=== PATIENT | female | born 1970 | race Caucasian/White ===

== ENCOUNTER 2018-12-27 07:16 | Inpatient (IN) | payer BC, SELFPAY ==
--- NOTE | 2018-12-26 16:00 | HP.PCM_ITS ---
- Problem List (1) Pelvic pain Status: Acute (2) Abnormal uterine bleeding (AUB) Status: Acute (3) Adenomyosis Status: Acute (4) History of endometrial ablation Status: Acute History Date of Admission: 12/27/18 History of this : This is a 48 year-old who had an uterine ablation in 2011. Now with AUB and pelvic pain and cramping. Pelvic US shows adenomyosis. Medical History: Medical History (Last Updated 12/26/18 @ 16:02 by Rose Manriquez DO) Hypercholesteremia E78.00 Hypertension I10 Interstitial cystitis N30.10 Surgical History: Surgical History (Last Updated 12/26/18 @ 16:02 by Rose Manriquez DO) History of tonsillectomy Z90.89 Allergies No Known Allergies Allergy (Verified 12/20/18 15:20) Home Medications: Home Medications Cyanocobalamin (Vitamin B-12) [Vitamin B-12] 1,000 mcg PO DAILY 12/20/18 Lisinopril [Zestril] 5 mg PO DAILY 12/20/18 Multivitamin with Minerals [Multiple Vitamin] 1 each PO DAILY 12/20/18 Rosuvastatin Calcium [Crestor] 5 mg PO QHS 12/20/18 Smoking Status: Never smoker History Past Pregnancies: Past Pregnancies Delivery Date Name GA/Weeks Outcome Route Weight Infant Gender Labor Length Anesthesia Delivery Location Provider FOB Review of Systems Constitutional: Denies: Anorexia, Chills, Fever Eyes: Denies: Blurred vision HEENT: Denies: Head Aches Cardiovascular: Denies: Chest Pain Respiratory: Denies: Cough, Shortness of Breath Gastrointestinal: Denies: Constipation, Diarrhea, Nausea, Vomiting Genitourinary: Denies: Dysuria Gynecological: Reports: Excessively long or heavy periods, - - +Pelvic pain Neurological: Denies: Headaches Psychiatric: Denies: Anxiety, Depression Physical Exam General: Alert, No apparent distress HEENT: Atraumatic Cardiovascular: Regular rate Lungs: Clear to auscultation Abdomen: Soft, Non Tender, Non-Distended Extremities:: No edema Neurological: Neuro grossly intact CHARGE MASTER COORDINATOR: Normal external genitalia Assessment/Plan All Active Problems Pelvic pain (Acute) Abnormal uterine bleeding (AUB) (Acute) Adenomyosis (Acute) History of endometrial ablation (Acute) This is a 48 year-old who desires a hysterectomy for pelvic pain, AUB, prior endometrial ablation, and adenomyosis. Risks, benefits, and alternatives were discussed. Consent signed. To proceed with CICI STOCKTON, abdulkadir.
[2018-12-27] VITALS (14 sets, daily range): BP systolic 92–151; BP diastolic 56–93; PULSE 40–65; RESP 14–18; TEMP 35.7–36.9; O2SAT 94–100; BMI 24.3
[2018-12-27 06:00] LABS: Internal QC Validated? YES +Cl - CLEAR BKGD; Pregnancy, Urine Negative Negative
[2018-12-27] MEDS: Scopolamine 1mg/72hr Patch 1 PATCH TRANSDERM. (06:17)
[2018-12-27] MEDS: Gabapentin 600 MG Tablet PO (06:20)
[2018-12-27] MEDS: Phenazopyridine 95 MG Tablet 190 MG PO (06:21)
[2018-12-27] MEDS: Acetaminophen 500 MG Tablet 1000 MG PO ×2 (06:21→17:53)
[2018-12-27] MEDS: Celecoxib 200 MG Capsule 400 MG PO (06:22)
[2018-12-27] MEDS: Enoxaparin 40 MG/0.4 ML Syringe SC (06:23)
[2018-12-27 06:24] LABS: Hematocrit 40.3 % (37-47); Hemoglobin 13.6 g/dl (12.0-15.0); Mean Corp Hgb Conc 33.7 g/gl (32-36); Mean Corpuscular Hgb 30.6 pg (27.0-32.0); Mean Corpuscular Volume 90.6 fL (81-99); Mean Platelet Vol. 10.1 fl (6.2-12.0); Platelet Count 226 K/mm3 (150-450); RBC Distribution Width CV 12.2 % (11.6-14.6); RBC Distribution Width SD 40.1 fl (35.1-43.9); Red Blood Count 4.45 M/mm3 (4.2-5.4); White Blood Count 5.7 K/mm3 (4.4-11.0)
[2018-12-27 06:32] LABS: Scan Indicated on CBC? Y/N NO
[2018-12-27] MEDS: Magnesium Sulfate 4gm/100mL 4 GM/100 ML IV.SOLN. IV (06:50)
[2018-12-27] MEDS: Lactated Ringers 1,000 ML 40 ML IV (06:50)
[2018-12-27] MEDS: dexAMETHasone 10 MG/ML Vial 8 MG IV (06:51)
[2018-12-27 06:56] LABS: Bedside Glucose 83 mg/dL (70-110)
--- NOTE | 2018-12-27 07:21 | OP.PCM_ITS ---
Problem List (1) Pelvic pain Status: Acute (2) Abnormal uterine bleeding (AUB) Status: Acute (3) Adenomyosis Status: Acute (4) History of endometrial ablation Status: Acute Report of Operation Date of Procedure: 12/27/18 Pre-Operative Diagnosis: Pelvic pain, AUB, history of endometrial ablation, adenomyosis Post-Operative Diagnosis: As above and endometriosis Surgery/Procedure Performed:: LAVH, BS, cysto Description of Surgical Findings:: Enlarged, boggy uterus with stenotic cervix. Several endometriosis implants noted on left fallopian tube. No other endometriosis noted. A small right fallopian tube cyst was noted. Normal bilateral ovaries. Normal pelvic cul-de-sac and bilateral ovarian fossas Type of Anesthesia:: General Special Medications: Floseal and Adeel Specimen's removed: Uterus, cervix, bilateral fallopian tubes Drains: Juan Estimated Blood Loss (mL): 150 Fluids Replaced: 1300 Description of Procedure: Fish Liver Sorter: Isabella Orozco MD Patient was prepped and draped in the usual sterile fashion in dorsal lithotomy position using yellow fin stirrups. A weighted speculum was placed in the vagina to expose the cervix and a single tooth tenaculum was placed on the anterior lip of the cervix. A uterine manipulator was placed. The speculum was removed. Gloves were changed and attention was turned to the above portion of the procedure. An infraumbilical incision was made to accommodate a 5 mm port. The 5 mm port was placed using direct visualization with the camera. Once confirmed intraperitoneal, insufflation was initiated. A left lateral 5 mm port was then placed. A right lateral 5 mm port was placed. The abdomen and pelvic were inspected and the above findings noted. The left fallopian tube was followed out to the fimbriated end and the mesosalpinx was cauterized and cut using the Ligasure device. The left uteroovarian ligament and round ligament were cauterized and transected. The same was performed on the right side. Bilaterally, the cardinal ligaments were cauterized and transected down to the level of the uterine arteries. The uterine arteries were skeletonized and cauterized. Attention was then turned below. The uterine manipulator was removed. A weighted speculum was placed to expose the cervix. Local was injected circumferentially around the cervico-vaginal junction. Posterior peritoneum was entered easily. Anterior peritoneum was entered while transportation assistant was watching from above with the laparoscope for assistance. The bilateral uterosacral ligaments were clamped, cut, and suture ligated. Bilateral cardinal ligaments were clamped, cut, and suture ligated. The uterus, cervix, and bilateral fallopian tubes were removed from the vagina and sent to pathology for review. The vagina was closed with interrupted [id number] sutures. Hemostasis was noted. A cystoscopy was performed noting a normal appearing bladder and bilateral ureteral jets. Gloves were then changed and attention turned to above. The abdomen was insufflated again and the camera was placed. General oozing was noted but no active bleeding after irrigation. Floseal and Adeel were placed over pedicles and cuff. Hemostasis was noted. The camera and all ports were removed from the abdomen. The incisions were closed with Monocryl, and Dermabond was placed over top. Instrument counts were correct and the patient was taken to the recovery room in stable condition. Grafts/Implants Used: None - Complications None - Admit VTE Documentation VTE Present on Admission: No VTE Mechan Device Prophylaxis: SCD's VTE Pharm Prophylaxis ordered?: No
--- NOTE | 2018-12-27 07:30 | OV_PTH ---
PATIENT: SUMAN ASHLEY LOC: MS3 U#:[id number] AGE/SX: 48/F ROOM: MS306 RE12/28/[address]: Dr. Maira Suárez, : 1970 BED: 1 DIS: 12/31/2018 SPEC #: [id number] RECD: 12/31/18 07:53 STATUS: FRANCO REQ #: [id number] ROSEMARIE: 12/27/18 07:[address]: Rose Manriquez DEPT: SURGICAL PATHOLOGY RECD BY: Lg Walker ENTERED: 12/31/18 10:13 SP TYPE: OVARY OTHR DR: Dr. Maira Suárez, DO Dr. Kee High, No Primary Care Phys Tissues: Right ovary Procedures: Surgery Specimen Level IV HEADER OPERATION: Diagnostic laparoscopy, evacuation of hematoma, right oophorectomy, placement of vaginal suture PRE-OP DIAGNOSIS: Postoperative hematoma TISSUE SUBMITTED: Right ovary MICROSCOPIC DIAGNOSIS Right ovary: Ovary with no significant pathologic changes. Multiple thick-walled blood vessels and focal dystrophic calcifications present. FA:kerri 01/01/19 MICROSCOPIC DESCRIPTION Slides are reviewed. IDC: CE GROSS DESCRIPTION Received in fixative is one container labeled with the patient's name and designated right ovary. The specimen consists of a blackish-leiva ovary measuring 2.2 x 1.5 x 1.7 cm. The specimen is serially sectioned and submitted in toto in three cassettes. / FA:kerri 12/31/18 TC:4 CPT: 07231
--- NOTE | 2018-12-27 07:30 | HYST_PTH ---
PATIENT: SUMAN ASHLEY LOC: MS3 U#:[id number] AGE/SX: 48/F ROOM: MS306 RE12/28/[address]: Dr. Maira Suárez, : 1970 BED: 1 DIS: 12/31/2018 SPEC #: [id number] RECD: 12/27/18 15:06 STATUS: FRANCO HODA #: [id number] ROSEMARIE: 12/27/18 07:[address]: Rose Manriquez DEPT: SURGICAL PATHOLOGY RECD BY: Lg Walker ENTERED: 12/28/18 08:05 SP TYPE: HYSTERECT OTHR DR: No Primary Care Phys Tissues: Uterus, NOS Procedures: Surgery Specimen Level V HEADER OPERATION: ERAS, lap-assisted vaginal hysterectomy, salpingectomy, cysto PRE-OP DIAGNOSIS: Pelvic pain, abnormal uterine bleeding, adenomyosis TISSUE SUBMITTED: Uterus, bilateral tubes MICROSCOPIC DIAGNOSIS Uterus and bilateral fallopian tubes: Uterus, 157 gm. Leiomyomas, 0.8 cm in greatest dimension. Proliferative endometrium. Myometrial hypertrophy. Mild chronic cervicitis with small nabothian cysts. Bilateral fallopian tubes with paratubal cysts and focal salpingitis isthmica nodosa. FA:kerri 12/31/18 COMMENT Case has been reviewed in consultation with Dr. Feliciano who concurs with the above diagnosis. IDC:CE MICROSCOPIC DESCRIPTION Slides are reviewed. GROSS DESCRIPTION Received in fixative is one container labeled with the patient's name and designated uterus, bilateral fallopian tubes. The specimen consists of a uterus with attached cervix and bilateral fallopian tubes. The uterus with attached cervix measures 9.5 x 8 x 5.5 cm and weighs 157 gm. The serosal surface of the uterus is leiva-pink with focal subserosal nodularity in the posterior right subcornu region. The attached cervix measures 3 cm in length x 3.2 cm in diameter. The exocervical mucosa is leiva and smooth with some focal brownish mucosal hemorrhage. The uterus is opened to reveal a patent endocervical canal. Grossly, no endocervical lesion is identified. The triangular endometrial cavity measures 2.5 x 1.7 cm with an average endometrial thickness of 0.1 cm. The endometrial surface is reddish-pink and smooth. Sections through the myometrium demonstrate a subcornu and subserosal myometrial nodular measuring 0.8 x 0.6 x 0.6 cm. The cut surface of the nodule is leiva and homogenous. The maximal thickness of the myometrial is 2.5 cm. The right fallopian tube measures 5.5 cm in length and varies in diameter from 0.7 to 1 cm. The serosal surface is grayish-pink with a 1 cm paratubal cyst. A fimbriated end is present. Cross-sections through the fallopian tube demonstrate a pinpoint lumen. The left fallopian tube measures 5 cm in length and varies in diameter from 0.5 to 1.2 cm. The serosal surface is grayish-pink and smooth. A fimbriated end is present. Cross-sections through the fallopian tube demonstrate a pinpoint lumen. Apartment Leasing Agent sections are submitted as follows: 1 - anterior cervix, 2 - posterior cervix, 3 & 4 - anterior endomyometrium, 5 & 6 - posterior endomyometrium, 7 - subserosal fibroid nodule, 8 - right fallopian tube, 9 - left fallopian tube. / JUAN:kerri 12/28/18 TC:1 CPT: 07562
[2018-12-27] MEDS: Cefazolin 2 GM in 0.9% Normal Saline 100 ML IV (07:35)
[2018-12-27] MEDS: Ondansetron 4 MG/2 ML Vial IV (10:12)
[2018-12-27] MEDS: Bupivacaine 0.5% PF 10 ML VIAL (10:15)
[2018-12-27] MEDS: Ketorolac 30 MG/ML Syringe IV (11:45)
[2018-12-27] MEDS: Lactated Ringers 1,000 ML 70 ML IV (15:42)
[2018-12-27] MEDS: Ketorolac 15 MG/ML Vial 30 MG IV (17:53)
[2018-12-27 18:20] LABS: Hematocrit 36.2 % (37-47); Hemoglobin 12.9 g/dl (12.0-15.0); Mean Corp Hgb Conc 35.6 g/gl (32-36); Mean Corpuscular Volume 89.8 fL (81-99); Mean Platelet Vol. 9.9 fl (6.2-12.0); Platelet Count 192 K/mm3 (150-450); RBC Distribution Width CV 12.1 % (11.6-14.6); RBC Distribution Width SD 39.6 fl (35.1-43.9); Red Blood Count 4.03 M/mm3 (4.2-5.4); White Blood Count 10.1 K/mm3 (4.4-11.0)
[2018-12-27 18:26] LABS: Scan Indicated on CBC? Y/N NO
[2018-12-27] MEDS: oxyCODONE 5 MG Tablet PO (21:13)
[2018-12-27] MEDS: Docusate Sodium 100 MG Capsule PO (21:14)
[2018-12-28] VITALS (59 sets, daily range): BP systolic 70–154; BP diastolic 34–96; PULSE 48–111; RESP 11–25; TEMP 36.6–37.4; O2SAT 79–100
[2018-12-28] MEDS: 0.9% NaCl Peripheral Flush Adult/Peds IV ×6 (00:03→10:51)
[2018-12-28] MEDS: Ketorolac 15 MG/ML Vial 30 MG IV ×2 (00:03→06:53)
[2018-12-28] MEDS: Acetaminophen 500 MG Tablet 1000 MG PO (00:09)
[2018-12-28] MEDS: Lactated Ringers 1,000 ML 70 ML IV (04:21)
[2018-12-28 04:31] LABS: Bedside Glucose 142 mg/dL (70-110)
--- NOTE | 2018-12-28 04:54 | NURSING ---
Called lab to advise them that wanted her morning labs drawn now.
[2018-12-28] MEDS: Lactated Ringers 1,000 ML 999 ML IV ×2 (04:59→06:15)
[2018-12-28 05:43] LABS: Hematocrit 29.4 % (37-47); Hemoglobin 10.1 g/dl (12.0-15.0); Mean Corp Hgb Conc 34.4 g/gl (32-36); Mean Corpuscular Hgb 31.3 pg (27.0-32.0); Mean Platelet Vol. 10.5 fl (6.2-12.0); Platelet Count 229 K/mm3 (150-450); RBC Distribution Width CV 11.9 % (11.6-14.6); Red Blood Count 3.23 M/mm3 (4.2-5.4); White Blood Count 9.8 K/mm3 (4.4-11.0)
--- NOTE | 2018-12-28 05:44 | EKG12_ITS ---
Test Reason : AM/BRADYCARDIA Blood Pressure : / mmHG Vent. Rate : 052 BPM Atrial Rate : 052 BPM P-R Int : 124 ms QRS Dur : 090 ms QT Int : 434 ms P-R-T Axes : 038 046 079 degrees QTc Int : 403 ms Sinus bradycardia Otherwise normal ECG When compared with ECG of 14-SEP-2006 10:55, No significant change was found Confirmed by ANTONIO RASCON, PERFECTO ([id number]), marketing editor VALENTIN POLANCO ([id number]) on 01/01/2019 8:15:23 AM Referred By: Rose Manriquez Confirmed By:PERFECTO ALVAREZ MD
[2018-12-28 05:51] LABS: Scan Indicated on CBC? Y/N NO
--- NOTE | 2018-12-28 06:48 | PCM.PN.OB ---
Subjective: Patient was doing well overnight. This morning she got up to use the restroom and felt lightheaded and dizzy and had a syncopal episode. She did not fall and was brought back to the bed. She states she does not remember this episode and remembers then feeling very weak in bed afterwards. Currently she denies CP, SOB, palpitations. Has been having generalized abdominal pain, and passes gas right after worsening in her pain. Having nausea as well this morning. Was spontaneously voiding overnight x 2. - Physical Exam General: Alert, No apparent distress HEENT: Atraumatic Lungs: Normal air movement Cardiovascular: Regular rate, Bradycardic Abdomen: Soft, Non-Distended, - - ATTP, no rebounding, no gaurding, no rigidity, incisions c/d/i Extremities: No edema, No Calf Tenderness Skin: No rashes Neurological: Neuro grossly intact Psych/Mental Status: Normal Affect, Appropriate Vital Signs Temp Pulse Resp BP Pulse Ox 98 F 55 L 18 84/58 L 100 12/28/18 04:40 12/28/18 06:25 12/28/18 04:40 12/28/18 06:40 12/28/18 06:40 Oxygen Flow Rate (L/min) 2 Oxygen Delivery Method Nasal Cannula Weight: 141 lb 15.643 oz Body Mass Index (BMI) 24.3 Intake and Output for Last 24 Hours 12/26/18 12/27/18 12/28/18 23:59 23:59 23:59 Intake Total 3613 / 3613 176 / 176 Output Total 1735 / 1735 100 / 100 Balance 1878 / 1878 76 / 76 Laboratory Tests Past 24 Hrs 12/27/18 12/27/18 12/28/18 06:10 18:08 05:04 WBC 10.1 9.8 RBC 4.03 L 3.23 L Hgb 12.9 10.1 L Hct 36.2 L 29.4 L MCV 89.8 91.0 MCH 32.0 31.3 MCHC 35.6 34.4 RDW 12.1 11.9 RDW Differential 39.6 38.0 Plt Count 192 229 MPV 9.9 10.5 Blood Type O POSITIVE Antibody Screen NEGATIVE POC Glucose 12/28/18 12/27/18 04:18 06:14 POC Glucose 142 H 83 Medical Necessity - Tobacco Use Smoking Status: Never smoker Tobacco Use: Non-smoker Assessment/Plan All Active Problems (Last Updated 12/26/18 @ 16:02 by Rose Manriquez DO) Pelvic pain (Acute) Abnormal uterine bleeding (AUB) (Acute) Adenomyosis (Acute) History of endometrial ablation (Acute) POD#1 s/p KATH, BS, cysto - This morning she had a syncopal episode after getting up to use the restroom. This was followed by hypotension and bradycardia. Has received 2L total of fluid bolus, and remains hypotensive at this time. CBC obtained and Hgb 10.1 which is appropriate for post-op day 1. EKG shows sinus bradycardia. Electrolytes pending. Likely vasovagal syncope given timing but patient persistently hypotensive and bradycardic, so will place consult to hospitalist for assistance with her care. Abdominal exam is benign this morning. UOP overnight was about 33 cc/hr. D/w Dr. Orozco for a second opinion as well - Dispo: Continue post-operative care. Await medicine consult. Anticipate d/c later tonight pending consult and if patient is improved and meeting post-op milestones
[2018-12-28] MEDS: Ondansetron 4 MG/2 ML Vial IV (07:01)
[2018-12-28 07:16] LABS: ALB/GLOB Ratio 1.2 RATIO (0.9-2.4); AST(SGOT) 12 U/L (15-37); Alanine Aminotransfer ALT/SGPT 11 U/L (13-56); Alkaline Phosphatase 43 U/L (45-117); Anion Gap 2 (5-15); BUN 13 mg/dL (7-18); BUN/Creat Ratio 14.9 RATIO (10-20); Calcium,Total 7.8 mg/dL (8.5-10.1); Chloride 103 mmol/L (98-107); Creatinine, Serum 0.87 mg/dL (0.55-1.02); EST Glomerular Filtration Rate 74 mL/min (>60); Est Glom Filt Rate - Afr Amer 89 mL/min (>60); Estimated Creatinine Clearance 68.29 ml/min; Globulin 2.5 g/dL (2.2-4.2); Glucose 122 mg/dL (74-106); Magnesium 2.2 mg/dL (1.6-2.6); Potassium 3.8 mmol/L (3.5-5.1); Protein, Total 5.5 g/dL (6.4-8.2); Sodium Level 132 mmol/L (136-145)
--- NOTE | 2018-12-28 07:36 | HP.PCM_ITS ---
Problem List (1) Hypotension Status: Acute (2) Bradycardia Status: Acute (3) Acute blood loss as cause of postoperative anemia Status: Acute (4) HLD (hyperlipidemia) Status: Chronic (5) Hyponatremia Status: Acute (6) HTN (hypertension) Status: Chronic (7) Interstitial cystitis Status: Chronic History of Present Illness Date of Admission: 12/28/18 Chief Complaint: bradycardia and hypotension with syncope The patient is a 48 year old F with a PMH of HLD, DUB\ and adenosis who had surgery on 12/27/[address] Manriquez. Surgery was a laparoscopic assisted vaginal hysterectomy with bilateral salpingo-oophorectomy and a cystoscopy. Blood pressures throughout the night have been on the low side. At approximately 5 AM this morning while in the bathroom she had a syncopal episode but did not hit the ground and was assisted to the bed. Stat CBC showed a white blood cell count of 9.8 with hemoglobin of 10.1 and platelets of 229,000. A CMP showed a low sodium at 132, BUN of 13 and a creatinine of 0.87. Calcium corrected for hypoalbuminemia was within normal limits. LFTs were unremarkable. Magnesium was within normal limits. At approximately 745 and AUTO BENCH MECHANIC was called because the patient was unresponsive in bed. Please see the AUTO BENCH MECHANIC note. She was transferred to the ICU with a systolic BP of 70and a HR in the 60's. She was diaphoretic and extremely pale. She was started on a dopamine infusion but the pressure remained low and she was transitioned to Levophed. The current systolic pressure is 102. There are currently 2 units of PRBC's running simultaneously. She is nauseated and had an emesis. A stat CT of the abd and pelvis will be obtained when the BP has been > 100 for 20-30 minutes. Fibrinogen is low at 184 and she is to receive at least 3 units of blood and probably more. I suspect that she is bleeding internally and will need to go to surgery when we have her stabilized. Past Medical History Past Medical History (Chronic Problems): Chronic Problems (Last Reviewed 12/28/18 @ 09:18 by Maira Suárez DO) HLD (hyperlipidemia) (Chronic) HTN (hypertension) (Chronic) Interstitial cystitis (Chronic) Medical History: Medical History (Last Reviewed 12/28/18 @ 09:18 by Maira Suárez DO) Hypercholesteremia E78.00 Hypertension I10 Interstitial cystitis N30.10 Allergies No Known Allergies Allergy (Verified 12/20/18 15:20) Home Medications: Ambulatory Orders Medication Instructions Recorded Cyanocobalamin (Vitamin B-12) 1,000 mcg PO DAILY 12/20/18 [Vitamin B-12] Lisinopril [Zestril] 5 mg PO DAILY 12/20/18 Multivitamin with Minerals 1 each PO DAILY 12/20/18 [Multiple Vitamin] Rosuvastatin Calcium [Crestor] 5 mg PO QHS 12/20/18 Surgical History: Surgical History (Last Reviewed 12/28/18 @ 09:18 by Maira Suárez DO) History of tonsillectomy Z90.89 Surgical History: - - Laparoscopic-assisted vaginal hysterectomy with bilateral salpingo-oophorectomy on 12/27/[address] Manriquez. Cystoscopy was also done. 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 Denies: Fever, Weight Change Eyes: Denies: Blurred vision HEENT: Denies: Head Aches, Sinus Congestion, Sinus Drainage Cardiovascular: Reports: Light Headedness. Denies: Chest Pain, Palpitations Respiratory: Denies: Cough, Shortness of breath at rest, Sputum production Gastrointestinal: Denies: Abdominal Pain, Nausea, Vomiting Genitourinary: Denies: Dysuria Gynecological: Reports: - - Severe pelvic pain radiating to the low back Musculoskeletal: Denies: Joint Pain, Joint Tenderness Skin: Denies: Jaundice, Rash, Wounds Neurological: Denies: Numbness, Tingling, Focal weakness Psychiatric: Denies: Anxiety, Depression, Homicidal Ideations, Suicidal Ideations Hematologic/ Lymphatic: Denies: Easy Bruising, Easy Bleeding, Hx of blood clot VTE Information - Inpt Only VTE Present on Admission: No VTE Mechan Device Prophylaxis: SCD's, Knee High GABI Hose VTE Pharm Prophylaxis ordered?: No Reason prophylaxis not ordered:: Treatment Not Indicated - pt is having severe post op anemia and I suspect she is bleeding internally. Patient Problems: Active and Suspected Problems (Last Reviewed 12/28/18 @ 09:18 by Maira Suárez DO) Hypotension (Acute) Bradycardia (Acute) Acute blood loss as cause of postoperative anemia (Acute) Hyponatremia (Acute) - Physical Exam General: Well developed, Well nourished, - - very weak and diaphoretic HEENT: Atraumatic, EOMI, Normocephalic, - - white palpebral conjunctiva, pupils were initially dilated but responsive and then when she became alert the pupils were normal size Oral: No Gingival or Mucosal Lesions/ Ulcerations, Dry Mucosa Neck: Supple, No JVD Lungs: Clear to auscultation, No rhonchi, No wheeze, No rales Cardiovascular: Regular rate - unusal because she is very hypotensive and I would suspect her to be tachycardic, Regular Rhythm, Normal S1, Normal S2, No murmurs, No rub noted, No Gallop Abdomen: Soft, Non-Distended, Tender - very tender in the pelvis, R and L and yells out with even light pressure Extremities: No clubbing, No cyanosis, No edema, - - Nailbeds are white with poor capillary refill Skin: No rashes, No breakdown Musculoskeletal: No Muscle Wasting Neurological: Cranial nerves II-XII grossly intact, Neuro grossly intact Vital Signs Temp Pulse Resp BP Pulse Ox 98 F 59 L 18 86/56 L 100 12/28/18 04:40 12/28/18 06:59 12/28/18 04:40 12/28/18 06:59 12/28/18 06:59 Oxygen Flow Rate (L/min) 1 Oxygen Delivery Method Nasal Cannula Weight: 141 lb 15.643 oz Body Mass Index (BMI) 24.3 Intake and Output for Last 24 Hours 12/26/18 12/27/18 12/28/18 23:59 23:59 23:59 Intake Total 3613 / 3613 176 / 176 Output Total 1735 / 1735 100 / 100 Balance 1878 / 1878 76 / 76 Laboratory Tests Past 24 Hrs 12/27/18 12/28/18 12/28/18 18:08 05:04 05:04 WBC 10.1 9.8 RBC 4.03 L 3.23 L Hgb 12.9 10.1 L Hct 36.2 L 29.4 L MCV 89.8 91.0 MCH 32.0 31.3 MCHC 35.6 34.4 RDW 12.1 11.9 RDW Differential 39.6 38.0 Plt Count 192 229 MPV 9.9 10.5 Sodium 132 L Potassium 3.8 Chloride 103 Carbon Dioxide 27.0 Anion Gap 2 L BUN 13 Creatinine 0.87 Estim Creat Clear Calc 68.29 Est GFR (MDRD) Af Amer 89 Est GFR (MDRD) Non-Af 74 BUN/Creatinine Ratio 14.9 Glucose 122 H Calcium 7.8 L Magnesium 2.2 Total Bilirubin 0.50 AST 12 L ALT 11 L Alkaline Phosphatase 43 L Total Protein 5.5 L Albumin 3.0 L Globulin 2.5 Albumin/Globulin Ratio 1.2 POC Glucose 12/28/18 04:18 POC Glucose 142 H Assessment/Plan All Active Problems (Last Reviewed 12/28/18 @ 09:18 by Maira Suárez, DO) Pelvic pain (Acute) Abnormal uterine bleeding (AUB) (Acute) Adenomyosis (Acute) History of endometrial ablation (Acute) Hypotension (Acute) Bradycardia (Acute) Acute blood loss as cause of postoperative anemia (Acute) Hyponatremia (Acute) Impressions 1. hemorrhagic shock 2. Bradycardia-unusual in a patient with hypotension secondary to hemorrhage 3. Acute blood loss anemia 4. Postop day #1 status post laparoscopic assisted vaginal hysterectomy 5. Hyponatremia 6. History of hypertension 7. History of hyperlipidemia Transfer to the ICU Transfuse 1 units of emergency blood now and type and cross match stat for additional blood......will transfuse a total of 3 and then re-evaluate Q6H H&H consult Dr. High to participate in care When the BP is stable will get a stat CT of the abd and the pelvise with IV contrast only Start pressors to maintain the MAP at at least 65 Fibrinogen, PT and PTT stat D/W Dr. Declan Banda lab in the AM Code Visit Inpatient E&M: 19057 Subs Hosp L3
[2018-12-28] MEDS: DOPamine IV 800 MG/250 ML IV.SOLN. 6.038 MG CONT INF (08:00)
--- NOTE | 2018-12-28 08:05 | NURSING ---
Dr High at bedside to place central line
--- NOTE | 2018-12-28 08:09 | CT_ITS ---
STUDY: CT ABDOMEN AND PELVIS WITH CONTRAST REASON FOR EXAM: Female, 48 years old. Pelvic bleed after hysterectomy. RADIATION DOSAGE (If Supplied By Facility): CTDIvol = ( 37 ) mGy, DLP = ( 951.50 ) mGycm TECHNIQUE: Transaxial images were obtained from the dome of the diaphragm to the symphysis pubis without oral contrast. 100 ml of IV Isovue 300 was administered. Sagittal and coronal images were reconstructed. Individualized dose optimization techniques were used for this CT. COMPARISON: Prior comparable comparison studies are not available for review at this time. FINDINGS: There is bilateral basilar dependent atelectasis and/or airspace consolidation. The visualized portions of the heart are within normal limits. Normal liver. Normal gallbladder and extrahepatic biliary system. Normal spleen. Normal pancreas. Normal bilateral adrenal glands. Normal right kidney. Normal left kidney. There is a small hiatal hernia. There is a large amount of abdominal fluid. The fluid has increased attenuation within the pelvis is consistent with known hemorrhage. Fluid within the proximal abdomen has more serous appearance but probably is also related to hemorrhage. There is no obvious dilated bowel or pneumoperitoneum. The small bowel has a grossly normal appearance. Stool is visible throughout the colon. The cecum appears to be mobile and is located in the right upper quadrant. There is non-visualization of the appendix. Abdominal aorta is mildly tortuous. Normal inferior vena cava. Normal retroperitoneum. The urinary bladder is not distended secondary to Juan catheter. Gas is visible urinary bladder probably related to the Juan catheter. There is absence of the uterus consistent with a prior hysterectomy. There is a small umbilical hernia containing fat. Normal osseous structures. CT/Abdomen/Pelvis W IV Cont ONLY IMPRESSION: 1. Large amount of pelvic hemorrhage and abdominal fluid. This is presumably related to the recent section. 2. Bilateral basilar airspace consolidation and atelectasis. N.B. : Dr Jose Armando MD, confirmed on 12/28/2018 14:13:22 (ET) that the referring physician received the results and does not require a verbal communication. Electronically Signed: Shilpi Puckett MD at 11:41 EDT , Service support ,
--- NOTE | 2018-12-28 08:13 | PN_ITS ---
Progress Note CHIEF TECHNICAL OFFICER note The pt is a 48 YO female who is POD #1. She had a LAVD, BS and cysto yesterday by Dr. Manriquez for adenosis with DUB. This morning at approximately 5 AM she was up to the BR and had a syncopal episode.....she did not fall and was placed back in bed. She had a CBC and the HGB was 10.1. PLT's are WNL. Sodium is mildly decreased. EKG showed SB with no significant ST or T wave changes. At about 7:45 an CHIEF TECHNICAL OFFICER was called because she became unresponsive while lying in bed. She was diaphoretic with dilate reactive pupils and extremely pale. Capillary refill was poor and the palpebral conjunctiva was white. She was diaphoretic. she is c/o of severe pelvic and back pain. there is no ecchymosis in the flanks. The HOB was placed flat and she became responsive. The systolic BP was 70 and the HR was in the 60's. She was transferred emergently to the ICU and started on Dopamine to support the BP. A central line has been placed by Dr. High. A unit of emergency blood was ordered and s stat crossmatch. Dr. High has been consulted to participate in care. Dr. Manriquez was made aware of the second syncopal episode and the transfer to the ICU. Dr. Manriquez notified the patient's of the change in status and transfer to the ICU. Will obtain a stat CT of the abd and the pelvis when the BP is stable.
[2018-12-28 08:14] LABS: Hematocrit 21.4 % (37-47); Hemoglobin 7.5 g/dl (12.0-15.0)
[2018-12-28 08:16] LABS: Bedside Glucose 151 mg/dL (70-110)
--- NOTE | 2018-12-28 08:16 | NURSING ---
This nurse went to see patient to perform vitals and assessment at 0740. Pt was verbal but talking very low. When asked if she was still nauseated, pt stated she was and yes to being dizzy. This nurse was attempting to take her BP when she started staring into space and was nonverbal, not responding to this nurse. This nurse pressed Staff Assist and told first nurse that came to go get Dr. Suárez whom was on the floor and had just been consulted on the patients case. While this nurse in the room performing vitals, and another nurse called Dr. Manriquez to inform her what was going on. Dr. Manriquez informed this nurse that she was going to call the and update him. Pt transferred to ICU room 1.
[2018-12-28 08:19] LABS: White Blood Count 14.9 K/mm3 (4.4-11.0)
--- NOTE | 2018-12-28 08:19 | RAD_ITS ---
STUDY: X-RAY CHEST REASON FOR EXAM: Female, 48 years old. Chest pain, line placement TECHNIQUE: Single AP portable view of the chest. COMPARISON: None. FINDINGS: EKG leads overlie the chest. A right IJ central venous catheter is in place, tip is in the right atrium. No pneumothorax or mediastinal shift. The lungs are clear and expanded. There is no demonstrated pleural abnormality. Normal size heart. Normal mediastinum and caroline. Normal visualized pulmonary arteries. Normal visualized aortic arch and descending thoracic aorta. Normal visualized thoracic spine. Normal visualized ribs, clavicles, and shoulders. There is no demonstrated abnormality of the visualized soft tissue structures of the upper abdomen. RAD/CXR for Line Placement IMPRESSION: No acute pulmonary process. Right central venous catheter has been placed, tip is in the right atrium. Electronically Signed: Issa Coulter MD at 12:45 EDT , Service support ,
[2018-12-28 08:20] LABS: Mean Corpuscular Hgb 31.9 pg (27.0-32.0); Mean Corpuscular Volume 91.1 fL (81-99); Mean Platelet Vol. 10.6 fl (6.2-12.0); Platelet Count 190 K/mm3 (150-450); RBC Distribution Width CV 11.8 % (11.6-14.6); RBC Distribution Width SD 37.3 fl (35.1-43.9); Red Blood Count 2.35 M/mm3 (4.2-5.4); Scan Indicated on CBC? Y/N NO
[2018-12-28 08:21] LABS: International Normalized Ratio 1.2; Prothrombin Time (Protime)PT. 15.3 SECONDS (11.7-14.9)
[2018-12-28 08:22] LABS: Partial Thromboplast Time 25.7 Seconds (24.1-36.2)
[2018-12-28 08:23] LABS: Fibrinogen 184 mg/dl (203-444)
--- NOTE | 2018-12-28 08:36 | CON.PCM_ITS ---
Reason for Consult Date of Consultation: 12/28/18 Reason for Consultation: Hemorrhagic shock History of Present Illness: The patient is a 48-year-old female, with a history as outlined below, who initially presented for admission on December 27 by her PEST CONTROL APPLICATOR due to a history of abnormal uterine bleeding along with pelvic pain in the setting of ultrasound evidence of adenomyosis. She was subsequently taken to the OR and underwent LAVH / BS with an estimated blood loss of approximately 150 mL's. The patient's immediate postoperative period was uncomplicated. However, on the morning of December 28, the patient was noted to be complaining of dizziness and lightheadedness. She also sustained a syncopal event while on the medical surgical floor. A rapid response team was called and the patient was noted to be hypotensive. She was subsequently transferred to the medical intensive care unit. Upon arrival, a repeat of her lab work revealed acute blood loss anemia. Earlier this morning, the patient was noted to have a hemoglobin of 10 g/dL. On recheck in the ICU, her hemoglobin was noted to be 7.5 g/dL. The patient was given several liters of supplemental IV fluids. Vasopressor support was initiated in an attempt to maintain hemodynamic stability. Central Venous Catheter (CVC, Central Line) Placement Indication: Intravenous access/administration of vasopressor agents. A time-out was completed verifying correct patient, procedure, site, positioning, and special equipment if applicable. The patient was placed in a dependent position appropriate for central line placement based on the vein to be cannulated. The patient?s right IJ was prepped and draped in sterile fashion. 1% Lidocaine was used to anesthetize the surrounding skin area. A triple lumen catheter was introduced into the the internal jugular vein using the Seldinger technique and under ultrasound guidance. The catheter was threaded smoothly over the guide wire and appropriate blood return was obtained. Each lumen of the catheter was evacuated of air and flushed with sterile saline. The catheter was then sutured in place to the skin and a sterile dressing applied. CXR to confirm appropriate positioning is pending. ULTRASOUND GUIDANCE STATEMENT (Vascular Access): I performed ultrasound image acquisition and interpretation for needle placement during this procedure. The vessel was identified and was found to be free of thrombosis by compression technique. A safe point of entry was marked at the skin and an angle for access was determined. The needle was guided by obtaining free flowing fluid and by real time visualization. Past Medical History Past Medical History (Chronic Problems): Chronic Problems (Last Reviewed 12/28/18 @ 09:18 by Maira Suárez DO) HLD (hyperlipidemia) (Chronic) HTN (hypertension) (Chronic) Interstitial cystitis (Chronic) Medical History: Medical History (Last Reviewed 12/28/18 @ 09:18 by Maira Suárez DO) Hypercholesteremia E78.00 Hypertension I10 Interstitial cystitis N30.10 Allergies No Known Allergies Allergy (Verified 12/20/18 15:20) Home Medications: Ambulatory Orders Medication Instructions Recorded Cyanocobalamin (Vitamin B-12) 1,000 mcg PO DAILY 12/20/18 [Vitamin B-12] Lisinopril [Zestril] 5 mg PO DAILY 12/20/18 Multivitamin with Minerals 1 each PO DAILY 12/20/18 [Multiple Vitamin] Rosuvastatin Calcium [Crestor] 5 mg PO QHS 12/20/18 Surgical History: Surgical History (Last Reviewed 12/28/18 @ 09:18 by Maira Suárez DO) History of tonsillectomy Z90.89 Smoking Status: Never smoker Tobacco Use: Non-smoker - *Family History Maternal History Items: No pertinent history Paternal History Items: No pertinent history Review of Systems Constitutional: Reports: Chills, Fatigue Eyes: Denies: Blurred vision, Double vision HEENT: Denies: Head Aches, Sinus Congestion, Sinus Drainage Cardiovascular: Denies: Chest Pain, Palpitations Respiratory: Denies: Cough, Shortness of breath at rest, Sputum production Gastrointestinal: Reports: Nausea, Vomiting Genitourinary: Denies: Dysuria Musculoskeletal: Denies: Joint Pain, Joint Tenderness Skin: Denies: Rash, Wounds Neurological: Denies: Numbness, Tingling, Focal weakness Psychiatric: Denies: Anxiety, Depression, Homicidal Ideations, Suicidal Ideations Hematologic/ Lymphatic: Reports: Anemia Patient Problems: Active and Suspected Problems (Last Reviewed 12/28/18 @ 09:18 by Maira Suárez DO) Hypotension (Acute) Bradycardia (Acute) Acute blood loss as cause of postoperative anemia (Acute) Hyponatremia (Acute) Objective: The patient's most recent lab work, culture data and imaging studies have all been personally reviewed. - Physical Exam General: Alert, Cooperative, - - Quite pale and ill in appearance HEENT: Atraumatic, Normocephalic Oral: Dry Mucosa Neck: Supple, No Nodes, Trachea Midline, - - Right IJ central venous catheter in place Lungs: Normal air movement, No rhonchi, No wheeze, No rales Cardiovascular: Regular rate, Normal S1, Normal S2, No murmurs Abdomen: Soft, Non-Distended, Tender - Pelvis Extremities: No clubbing, No cyanosis, No edema, Cool Skin: No breakdown Musculoskeletal: No Muscle Wasting Lymphatic: No Cervical, Supraclavicular, or Inguinal Adenopathy Neurological: Neuro grossly intact Psych/Mental Status: Normal Affect, Appropriate Vital Signs Temp Pulse Resp BP Pulse Ox 98 F 57 L 14 70/34 L 100 12/28/18 04:40 12/28/18 07:50 12/28/18 07:50 12/28/18 08:00 12/28/18 07:40 Oxygen Flow Rate (L/min) 2 Oxygen Delivery Method Nasal Cannula Weight: 141 lb 15.643 oz Body Mass Index (BMI) 24.3 Intake and Output for Last 24 Hours 12/26/18 12/27/18 12/28/18 23:59 23:59 23:59 Intake Total 3613 / 3613 176 / 176 Output Total 1735 / 1735 100 / 100 Balance 1878 / 1878 76 / 76 Laboratory Tests Past 24 Hrs 12/27/18 12/27/18 12/27/18 06:10 06:10 18:08 WBC 10.1 RBC 4.03 L Hgb 12.9 Hct 36.2 L MCV 89.8 MCH 32.0 MCHC 35.6 RDW 12.1 RDW Differential 39.6 Plt Count 192 MPV 9.9 PT INR APTT Fibrinogen Sodium Potassium Chloride Carbon Dioxide Anion Gap BUN Creatinine Estim Creat Clear Calc Est GFR (MDRD) Af Amer Est GFR (MDRD) Non-Af BUN/Creatinine Ratio Glucose Calcium Magnesium Total Bilirubin AST ALT Alkaline Phosphatase Total Protein Albumin Globulin Albumin/Globulin Ratio Crossmatch See Detail See Detail 12/28/18 12/28/18 12/28/18 05:04 05:04 08:00 WBC 9.8 14.9 H RBC 3.23 L 2.35 L Hgb 10.1 L 7.5 L Hct 29.4 L 21.4 L MCV 91.0 91.1 MCH 31.3 31.9 MCHC 34.4 35.0 RDW 11.9 11.8 RDW Differential 38.0 37.3 Plt Count 229 190 MPV 10.5 10.6 PT INR APTT Fibrinogen Sodium 132 L Potassium 3.8 Chloride 103 Carbon Dioxide 27.0 Anion Gap 2 L BUN 13 Creatinine 0.87 Estim Creat Clear Calc 68.29 Est GFR (MDRD) Af Amer 89 Est GFR (MDRD) Non-Af 74 BUN/Creatinine Ratio 14.9 Glucose 122 H Calcium 7.8 L Magnesium 2.2 Total Bilirubin 0.50 AST 12 L ALT 11 L Alkaline Phosphatase 43 L Total Protein 5.5 L Albumin 3.0 L Globulin 2.5 Albumin/Globulin Ratio 1.2 Crossmatch 12/28/18 08:00 WBC RBC Hgb Hct MCV MCH MCHC RDW RDW Differential Plt Count MPV PT 15.3 H INR 1.2 APTT 25.7 Fibrinogen 184 L Sodium Potassium Chloride Carbon Dioxide Anion Gap BUN Creatinine Estim Creat Clear Calc Est GFR (MDRD) Af Amer Est GFR (MDRD) Non-Af BUN/Creatinine Ratio Glucose Calcium Magnesium Total Bilirubin AST ALT Alkaline Phosphatase Total Protein Albumin Globulin Albumin/Globulin Ratio Crossmatch POC Glucose 12/28/18 12/28/18 07:42 04:18 POC Glucose 151 H 142 H Assessment/Plan Active and Suspected Problems (Last Reviewed 12/28/18 @ 09:18 by Maira Suárez DO) Hypotension (Acute) Bradycardia (Acute) Acute blood loss as cause of postoperative anemia (Acute) Hyponatremia (Acute) RECOMMENDATIONS: 1. Transfuse packed red blood cells and FFP as ordered. 2. Obtain plain film chest x-ray to confirm central venous catheter placement. 3. Transition from dopamine to Levophed and wean to maintain a mean arterial pressure at or above 65 mmHg. 4. Obtain coags. 5. Once bolus fluids have completed, continue lactated Ringer's at 150 mL's per hour. 6. Obtain CT abdomen/pelvis once medically stabilized. IMPRESSIONS: 1. Hemorrhagic shock The patient developed acute blood loss anemia this morning and subsequent hypotension following surgical intervention yesterday during which time she underwent LAVH, BS, and cysto. The patient was transferred emergently to the ICU. The patient will receive bolus IV fluids while repeat labs are being obtained. The patient was initially started on dopamine to maintain hemodynamic stability. A central venous catheter was placed. The patient will receive transfusion of blood products to include FFP and packed red blood cells. I did recommend transitioning from dopamine to Levophed with a goal to maintain a mean arterial pressure at or above 65 mmHg. Antiemetics will be initiated for the patient's nausea/vomiting. Once the patient has stabilized, she will be taken for a stat CT of her abdomen/pelvis. I do anticipate that she will need to be taken back to the OR at some point today for intervention. TIME: 48 minutes of critical care time, inclusive of procedures, was spent addressing the patient's hemorrhagic shock, review of all data and collaboration with the care team. ([id number]) Code Visit 9xxxx: [id number] Critical care first hour
--- NOTE | 2018-12-28 09:05 | NURSING ---
per dr rushing, run both units of blood together wide open
[2018-12-28] MEDS: 0.9% Normal Saline 1,000 ML 999 ML IV (09:21)
[2018-12-28] MEDS: Lactated Ringers 1,000 ML 150 ML IV ×2 (09:24→15:30)
--- NOTE | 2018-12-28 10:00 | NURSING ---
Emergency blood that was brought with patient did not have matching expiration dates on white form and label on blood bag. Spoke w/lab, that bag was sent back to the lab and the first 2u of crossmatched blood were brought up and to be transfused. Per Dr Suárez- give both unit at the same time and do not need to do q15m vitals d/t emergency and pt hemorrhaging. 3rd unit given as soon as 1st unit done. Emergency bag never given. Pt also received 1u FFP.
[2018-12-28] MEDS: proMETHazine 25 MG/ML Syringe 6.25 MG IV (10:51)
[2018-12-28 12:49] LABS: Hematocrit 32.1 % (37-47); Hemoglobin 11.2 g/dl (12.0-15.0); Mean Corp Hgb Conc 34.9 g/gl (32-36); Mean Corpuscular Hgb 31.3 pg (27.0-32.0); Mean Corpuscular Volume 89.7 fL (81-99); Mean Platelet Vol. 10.2 fl (6.2-12.0); Platelet Count 119 K/mm3 (150-450); RBC Distribution Width CV 12.9 % (11.6-14.6); RBC Distribution Width SD 41.6 fl (35.1-43.9); Red Blood Count 3.58 M/mm3 (4.2-5.4); White Blood Count 10.8 K/mm3 (4.4-11.0)
[2018-12-28 12:50] LABS: Scan Indicated on CBC? Y/N NO
--- NOTE | 2018-12-28 13:29 | PN_ITS ---
Progress Note At bedside to talk to patient and family. Reviewed lab results and CT scan results. Discussed that she had a post-op intra-abdominal bleed. She is now stable off of pressors and s/p 3 units PRBC's. Discussed a laparoscopy to evacuate the hematoma, as well as to assess for an active bleed. Discussed that it is possible that after evacuation of the blood clot, the site of bleeding is disrupted and begins to bleed again. Also discussed that it is possible that the site of active bleeding is not able to be identified. Reviewed possible laparot anabella, as well as possible suture or cautery of any area of bleeding. Discussed risks of surgery including but not limited to bleeding, infection, injury to surrounding organs or blood vessels. Reviewed alternative to surgery which would be expectant management with serial CBC's and exams - discussed that the hematoma could continue to cause discomfort, possible infection, and possible adhesions. Patient desires to proceed with surgery at this time. Reviewed patient with Dr. Orozco as well for a second opinion. Will schedule surgery for today to proceed with a laparoscopy and evacuation of pelvic and abdominal hematomas.
--- NOTE | 2018-12-28 13:45 | CASEMGMT ---
RN CM Note: RN CM assessment deferred. Pt receiving frequent ICU care, transfusions and will be returning to surgery today. Travis BOLANOSN RN ACM
--- NOTE | 2018-12-28 15:40 | NURSING ---
Pt taken to surgery by Alyx, OR charge nurse. Family present when pt left unit.
[2018-12-28] MEDS: Bupivacaine Mpf 0.5% 30 ML VIAL (18:03)
--- NOTE | 2018-12-28 18:09 | OP.PCM_ITS ---
Problem List (1) Hypotension Status: Acute (2) Bradycardia Status: Acute (3) Acute blood loss as cause of postoperative anemia Status: Acute Report of Operation Date of Procedure: 12/28/18 Pre-Operative Diagnosis: Post-operative acute blood loss anemia, intrabdominal hematoma Post-Operative Diagnosis: As above Surgery/Procedure Performed:: Laparoscopy, evacuation of hematoma, right oophorectomy, placement of vaginal cuff suture, cauterization of posterior vaginal cuff Description of Surgical Findings:: 2L of dark red blood clot present. 150 cc of bright red blood. The posterior vaginal cuff had a general ooze. The right IP also was oozing just at the ovary. No significant active bleeding noted after clot was evacuated. Intact vaginal cuff. Type of Anesthesia:: General Special Medications: Floseal and Adeel Specimen's removed: Right ovary Drains: Juan Estimated Blood Loss (mL): 150 cc Fluids Replaced: 1100 cc Description of Procedure: Assistance: Isabella Orozco MD Patient prepped and draped in usual sterile fashion in dorsal lithotomy position using yellow fin stirrups. A sponge stick was placed in the vagina for manipulation. Gloves were changed and attention turned to the abdominal portion of the case. A 5 mm supraumbilical incision was made to accommodate a 5 mm port and laparoscope. The port was placed under direct visualization and once confirmed intraperitoneal the abdomen was insufflated. A right lateral 5 mm port was placed. A left lateral 5 mm port was placed. The clot was evacuated and the abdomen and pelvis were irrigated. Thorough inspection was performed of the abdomen and pelvis. There was no obvious, active hemorrhage The posterior vaginal cuff appeared oozy. With the assistant quality manager watching from above, a single [id number] suture was placed along the vaginal cuff. Gloves were then changed for the continued abdominal portion of the case. The pelvis continued to be inspected. A LUQ port was placed to assist with retraction of the bowel. The right IP was minimally bleeding with oozing noted, and the decision was made to perform a right oophorectomy. The right ureter was identified. The right IP ligament was cauterized and transected to remove the right ovary. The pelvis continued to be irrigated and suctioned and inspected to try to identified an obvious active source of hemorrhage The posterior vaginal cuff was still oozing so the monopolar cautery was used over a single area to cauterize the bleeding. The pelvis was again irrigated, suctioned and inspected. A bag was placed through the left lateral port to remove the ovary. The CO2 insufflated was decreased serially to relieve the abdomen of pressure to try to identify bleeding. Still no obvious, active hemorrhage was noted. Floseal was placed along the pedicles and vaginal cuff. Adeel was then placed over this. The CO2 insufflation continued to be serially decreased and still no obvious active hemorrhage was noted. The ports were removed. The incisions were closed with Monocryl and Dermabond. All instruments were removed from the vagina. Instrument counts were correct. The patient was taken to the ICU in stable condition. Grafts/Implants Used: None - Complications None - Admit VTE Documentation VTE Present on Admission: No VTE Mechan Device Prophylaxis: SCD's VTE Pharm Prophylaxis ordered?: No
--- NOTE | 2018-12-28 18:30 | NURSING ---
Received from surgery, anesthesia present.
[2018-12-28] MEDS: Lactated Ringers 1,000 ML 15 ML IV (20:06)
[2018-12-28 20:23] LABS: Hematocrit 29.5 % (37-47); Hemoglobin 10.3 g/dl (12.0-15.0)
[2018-12-28] MEDS: HYDROmorphone 0.5 MG/0.5 ML SYRINGE 0.25 MG IV (22:38)
[2018-12-29] VITALS (29 sets, daily range): BP systolic 99–140; BP diastolic 49–91; PULSE 58–83; RESP 12–23; TEMP 36.8–37.8; O2SAT 88–97
[2018-12-29 00:39] LABS: Hemoglobin 9.2 g/dl (12.0-15.0)
[2018-12-29] MEDS: HYDROmorphone 0.5 MG/0.5 ML SYRINGE 0.25 MG IV (04:02)
[2018-12-29 04:21] LABS: Absolute Lymphocyte Count 0.87 X10^3/ul (0.83-4.51); Absolute Neutrophil Count 2.9 X10^3/uL (2.0-7.7); Hematocrit 26.4 % (37-47); Hemoglobin 9.1 g/dl (12.0-15.0); Lymphocyte # 0.87 X10^3/ul (4.0); Lymphocyte % 20.4 % (19-41); Mean Corp Hgb Conc 34.5 g/gl (32-36); Mean Corpuscular Hgb 31.3 pg (27.0-32.0); Mean Corpuscular Volume 90.7 fL (81-99); Mean Platelet Vol. 10.3 fl (6.2-12.0); Monocyte# 0.48 X10^3/uL; Monocyte% 11.3 % (0-10); Neutrophil # 2.91 X10^3/uL (2.7-7.7); Neutrophil % 68.3 % (47-70); Platelet Count 107 K/mm3 (150-450); RBC Distribution Width CV 13.2 % (11.6-14.6); RBC Distribution Width SD 43.7 fl (35.1-43.9); Red Blood Count 2.91 M/mm3 (4.2-5.4); White Blood Count 4.3 K/mm3 (4.4-11.0)
[2018-12-29 04:30] LABS: POSITIVE COUNT NO; POSITIVE DIFFERENTIAL NO; POSITIVE MORPHOLOGY NO
[2018-12-29 04:36] LABS: Anion Gap 4 (5-15); BUN 11 mg/dL (7-18); BUN/Creat Ratio 17.2 RATIO (10-20); Calcium,Total 7.6 mg/dL (8.5-10.1); Chloride 109 mmol/L (98-107); Creatinine, Serum 0.64 mg/dL (0.55-1.02); EST Glomerular Filtration Rate 105 mL/min (>60); Est Glom Filt Rate - Afr Amer 128 mL/min (>60); Estimated Creatinine Clearance 92.83 ml/min; Glucose 110 mg/dL (74-106); Potassium 4.2 mmol/L (3.5-5.1); Sodium Level 143 mmol/L (136-145)
--- NOTE | 2018-12-29 06:39 | PN_ITS ---
Subjective: The patient was seen and examined at the bedside this morning. Events from the last 24 hours have been reviewed. The patient is currently afebrile, hemodynamically stable and maintaining appropriate oxygen saturations on 2 L/min via nasal cannula. The patient is resting comfortably in bed and only reports a mild degree of right-sided abdominal/flank pain. Hemoglobin has been stable overnight. In total, the patient was transfused 3 units of packed red blood cells yesterday along with FFP. She was taken to the OR yesterday where she underwent evacuation of intra-abdominal hematoma, right oophorectomy, placement of vaginal cuff suture and cauterization of posterior vaginal cuff. Objective: The patient's most recent lab work, culture data and imaging studies have all been personally reviewed. General: Alert, Cooperative, No apparent distress HEENT: Atraumatic, PERRLA, Normocephalic Oral: Dry Mucosa Neck: Supple, No Nodes, Trachea Midline Lungs: No rhonchi, No wheeze, No rales, Diminished Cardiovascular: Regular rate, Regular Rhythm, Normal S1, Normal S2, No murmurs Abdomen: Bowel Sounds Present, Soft, Non-Distended Extremities: No clubbing, No cyanosis Skin: - - No significant change from previous Musculoskeletal: No Muscle Wasting Lymphatic: No Cervical, Supraclavicular, or Inguinal Adenopathy Neurological: Cranial nerves II-XII grossly intact, Neuro grossly intact Psych/Mental Status: Alert and oriented to time, place, person, mood and affect Vital Signs Temp Pulse Resp BP Pulse Ox 98.5 F 64 12 99/62 92 12/29/18 04:00 12/29/18 06:00 12/29/18 06:00 12/29/18 06:00 12/29/18 06:00 Oxygen Flow Rate (L/min) 2 Oxygen Delivery Method Nasal Cannula Weight: 156 lb 4.924 oz Body Mass Index (BMI) 24.3 Intake and Output for Last 24 Hours 12/27/18 12/28/18 12/29/18 23:59 23:59 23:59 Intake Total 3613 / 3613 7195.5 / 7195.5 86.8 / 86.8 Output Total 1735 / 1735 2750 / 2750 500 / 500 Balance 1878 / 1878 4445.5 / 4445.5 -413.2 / -413.2 Labs (Last 48 Hours) 12/27/18 12/27/18 12/27/18 06:10 06:10 06:10 WBC RBC Hgb Hct MCV MCH MCHC RDW RDW Differential Plt Count MPV Immature Gran % (Auto) Neut % (Auto) Lymph % (Auto) [place] % (Auto) Eos % (Auto) Baso % (Auto) Absolute Neuts (auto) Absolute Lymphs (auto) Total Counted PT INR APTT Fibrinogen Sodium Potassium Chloride Carbon Dioxide Anion Gap BUN Creatinine Estim Creat Clear Calc Est GFR (MDRD) Af Amer Est GFR (MDRD) Non-Af BUN/Creatinine Ratio Glucose Calcium Magnesium Total Bilirubin AST ALT Alkaline Phosphatase Troponin I Total Protein Albumin Globulin Albumin/Globulin Ratio POC Glucose Blood Type O POSITIVE Antibody Screen NEGATIVE Crossmatch See Detail See Detail 12/27/18 12/27/18 12/28/18 06:14 18:08 04:18 WBC 10.1 RBC 4.03 L Hgb 12.9 Hct 36.2 L MCV 89.8 MCH 32.0 MCHC 35.6 RDW 12.1 RDW Differential 39.6 Plt Count 192 MPV 9.9 Immature Gran % (Auto) Neut % (Auto) Lymph % (Auto) [place] % (Auto) Eos % (Auto) Baso % (Auto) Absolute Neuts (auto) Absolute Lymphs (auto) Total Counted PT INR APTT Fibrinogen Sodium Potassium Chloride Carbon Dioxide Anion Gap BUN Creatinine Estim Creat Clear Calc Est GFR (MDRD) Af Amer Est GFR (MDRD) Non-Af BUN/Creatinine Ratio Glucose Calcium Magnesium Total Bilirubin AST ALT Alkaline Phosphatase Troponin I Total Protein Albumin Globulin Albumin/Globulin Ratio POC Glucose 83 142 H Blood Type Antibody Screen Crossmatch 12/28/18 12/28/18 12/28/18 05:04 05:04 05:04 WBC 9.8 RBC 3.23 L Hgb 10.1 L Hct 29.4 L MCV 91.0 MCH 31.3 MCHC 34.4 RDW 11.9 RDW Differential 38.0 Plt Count 229 MPV 10.5 Immature Gran % (Auto) Neut % (Auto) Lymph % (Auto) [place] % (Auto) Eos % (Auto) Baso % (Auto) Absolute Neuts (auto) Absolute Lymphs (auto) Total Counted PT INR APTT Fibrinogen Sodium 132 L Potassium 3.8 Chloride 103 Carbon Dioxide 27.0 Anion Gap 2 L BUN 13 Creatinine 0.87 Estim Creat Clear Calc 68.29 Est GFR (MDRD) Af Amer 89 Est GFR (MDRD) Non-Af 74 BUN/Creatinine Ratio 14.9 Glucose 122 H Calcium 7.8 L Magnesium 2.2 Total Bilirubin 0.50 AST 12 L ALT 11 L Alkaline Phosphatase 43 L Troponin I < 0.015 Total Protein 5.5 L Albumin 3.0 L Globulin 2.5 Albumin/Globulin Ratio 1.2 POC Glucose Blood Type Antibody Screen Crossmatch 12/28/18 12/28/18 12/28/18 07:42 08:00 08:00 WBC 14.9 H RBC 2.35 L Hgb 7.5 L Hct 21.4 L MCV 91.1 MCH 31.9 MCHC 35.0 RDW 11.8 RDW Differential 37.3 Plt Count 190 MPV 10.6 Immature Gran % (Auto) Neut % (Auto) Lymph % (Auto) [place] % (Auto) Eos % (Auto) Baso % (Auto) Absolute Neuts (auto) Absolute Lymphs (auto) Total Counted PT 15.3 H INR 1.2 APTT 25.7 Fibrinogen 184 L Sodium Potassium Chloride Carbon Dioxide Anion Gap BUN Creatinine Estim Creat Clear Calc Est GFR (MDRD) Af Amer Est GFR (MDRD) Non-Af BUN/Creatinine Ratio Glucose Calcium Magnesium Total Bilirubin AST ALT Alkaline Phosphatase Troponin I Total Protein Albumin Globulin Albumin/Globulin Ratio POC Glucose 151 H Blood Type Antibody Screen Crossmatch 12/28/18 12/28/18 12/28/18 12:30 12:30 19:55 WBC 10.8 RBC 3.58 L Hgb 11.2 L 10.3 L Hct 32.1 L 29.5 L MCV 89.7 MCH 31.3 MCHC 34.9 RDW 12.9 RDW Differential 41.6 Plt Count 119 L MPV 10.2 Immature Gran % (Auto) Neut % (Auto) Lymph % (Auto) [place] % (Auto) Eos % (Auto) Baso % (Auto) Absolute Neuts (auto) Absolute Lymphs (auto) Total Counted PT INR APTT Fibrinogen Sodium Potassium Chloride Carbon Dioxide Anion Gap BUN Creatinine Estim Creat Clear Calc Est GFR (MDRD) Af Amer Est GFR (MDRD) Non-Af BUN/Creatinine Ratio Glucose Calcium Magnesium Total Bilirubin AST ALT Alkaline Phosphatase Troponin I 0.340 H Total Protein Albumin Globulin Albumin/Globulin Ratio POC Glucose Blood Type Antibody Screen Crossmatch 12/28/18 12/29/18 12/29/18 19:55 00:00 00:30 WBC RBC Hgb Cancelled 9.2 L Hct Cancelled 28.0 L MCV MCH MCHC RDW RDW Differential Plt Count MPV Immature Gran % (Auto) Neut % (Auto) Lymph % (Auto) [place] % (Auto) Eos % (Auto) Baso % (Auto) Absolute Neuts (auto) Absolute Lymphs (auto) Total Counted PT INR APTT Fibrinogen Sodium Potassium Chloride Carbon Dioxide Anion Gap BUN Creatinine Estim Creat Clear Calc Est GFR (MDRD) Af Amer Est GFR (MDRD) Non-Af BUN/Creatinine Ratio Glucose Calcium Magnesium Total Bilirubin AST ALT Alkaline Phosphatase Troponin I 0.107 H Total Protein Albumin Globulin Albumin/Globulin Ratio POC Glucose Blood Type Antibody Screen Crossmatch 12/29/18 12/29/18 03:55 03:55 WBC 4.3 L RBC 2.91 L Hgb 9.1 L Hct 26.4 L MCV 90.7 MCH 31.3 MCHC 34.5 RDW 13.2 RDW Differential 43.7 Plt Count 107 L MPV 10.3 Immature Gran % (Auto) 0.000 Neut % (Auto) 68.3 Lymph % (Auto) 20.4 [place] % (Auto) 11.3 H Eos % (Auto) 0.0 Baso % (Auto) 0.0 Absolute Neuts (auto) 2.9 Absolute Lymphs (auto) 0.87 Total Counted Not Reportable PT INR APTT Fibrinogen Sodium 143 Potassium 4.2 Chloride 109 H Carbon Dioxide 30.0 Anion Gap 4 L BUN 11 Creatinine 0.64 Estim Creat Clear Calc 92.83 Est GFR (MDRD) Af Amer 128 Est GFR (MDRD) Non-Af 105 BUN/Creatinine Ratio 17.2 Glucose 110 H Calcium 7.6 L Magnesium Total Bilirubin AST ALT Alkaline Phosphatase Troponin I Total Protein Albumin Globulin Albumin/Globulin Ratio POC Glucose Blood Type Antibody Screen Crossmatch Clinical Impression(s) from Imaging Studies Chest X-Ray 12/28/18 08:19 IMPRESSION: No acute pulmonary process. Right central venous catheter has been placed, tip is in the right atrium. Electronically Signed: Issa Coulter MD at 12:45 EDT , Service support , Medical Necessity - Tobacco Use Smoking Status: Never smoker Tobacco Use: Non-smoker Assessment/Plan All Active Problems (Last Reviewed 12/28/18 @ 09:18 by Maira Suárez DO) Pelvic pain (Acute) Abnormal uterine bleeding (AUB) (Acute) Adenomyosis (Acute) History of endometrial ablation (Acute) Hypotension (Acute) Bradycardia (Acute) Acute blood loss as cause of postoperative anemia (Acute) Hyponatremia (Acute) RECOMMENDATIONS: 1. Continue current pain control regimen. 2. Continue to monitor blood counts. Transfuse if hemoglobin drops below 7 g/dL. 3. Dietary advancement per [employer] recommendations. 4. Encourage incentive spirometer use and mobilize patient as tolerated. IMPRESSIONS: 1. Hemorrhagic shock Resolved. The patient developed acute blood loss anemia and subsequent hypotension following surgical intervention on 12/27, during which time she underwent LAVH, BS, and cysto. The patient was transferred emergently to the ICU. The patient was supported with IV fluids, vasopressors and blood products. She stabilized clinically and was taken back to the OR on 12/28 for evacuation of intra-abdominal hematomas. The patient is not currently have a need for vasopressor support. Her blood counts have remained stable overnight. Recommend continuing current supportive measures including pain control as ordered. Continue to monitor blood counts, with plans to transfuse for hemoglobin less than 7 g/dL. Dietary advancement per [employer] recommendations. Encourage incentive spirometer use and mobilize patient as tolerated. This note was generated with [employer] dictation software. It may contain incorrect words, spelling, and punctuation that were not noted in checking the note before signing. Code Visit Inpatient E&M: 75025 [facility] H[facility] L3
--- NOTE | 2018-12-29 08:20 | PCM.PN.OB ---
Patient Problems: Active and Suspected Problems (Last Reviewed 12/28/18 @ 09:18 by Maira Suárez DO) Hypotension (Acute) Bradycardia (Acute) Acute blood loss as cause of postoperative anemia (Acute) Hyponatremia (Acute) Subjective: Patient doing well. Pain is significantly improved. She has not yet been up out of bed. Tolerating ice chips. Has some right sided abdominal pain that is controlled. No lightheadedness, CP, SOB, leg pain, nausea, vomiting. - Physical Exam General: Alert, No apparent distress HEENT: Atraumatic Lungs: - - No increased resp effort Abdomen: Soft, - - +Minimal diffuse tenderness, +slight distension, no rebounding, no gaurding, no rigidity, incisions c/d/i Skin: No rashes Neurological: Neuro grossly intact Psych/Mental Status: Normal Affect, Appropriate Vital Signs Temp Pulse Resp BP Pulse Ox 98.5 F 69 16 120/77 92 12/29/18 04:00 12/29/18 08:00 12/29/18 08:00 12/29/18 08:00 12/29/18 08:00 Oxygen Flow Rate (L/min) 2 Oxygen Delivery Method Nasal Cannula Weight: 156 lb 4.924 oz Body Mass Index (BMI) 24.3 Intake and Output for Last 24 Hours 12/27/18 12/28/18 12/29/18 23:59 23:59 23:59 Intake Total 3613 / 3613 7195.5 / 7195.5 86.8 / 86.8 Output Total 1735 / 1735 2750 / 2750 500 / 500 Balance 1878 / 1878 4445.5 / 4445.5 -413.2 / -413.2 Laboratory Tests Past 24 Hrs 12/27/18 12/27/18 12/28/18 06:10 06:10 05:04 WBC RBC Hgb Hct MCV MCH MCHC RDW RDW Differential Plt Count MPV Immature Gran % (Auto) Neut % (Auto) Lymph % (Auto) [place] % (Auto) Eos % (Auto) Baso % (Auto) Absolute Neuts (auto) Absolute Lymphs (auto) Total Counted PT INR APTT Fibrinogen Sodium Potassium Chloride Carbon Dioxide Anion Gap BUN Creatinine Estim Creat Clear Calc Est GFR (MDRD) Af Amer Est GFR (MDRD) Non-Af BUN/Creatinine Ratio Glucose Calcium Troponin I < 0.015 Crossmatch See Detail See Detail 12/28/18 12/28/18 12/28/18 08:00 08:00 12:30 WBC 14.9 H 10.8 RBC 2.35 L 3.58 L Hgb 11.2 L Hct 32.1 L MCV 91.1 89.7 MCH 31.9 31.3 MCHC 35.0 34.9 RDW 11.8 12.9 RDW Differential 37.3 41.6 Plt Count 190 119 L MPV 10.6 10.2 Immature Gran % (Auto) Neut % (Auto) Lymph % (Auto) [place] % (Auto) Eos % (Auto) Baso % (Auto) Absolute Neuts (auto) Absolute Lymphs (auto) Total Counted PT 15.3 H INR 1.2 APTT 25.7 Fibrinogen 184 L Sodium Potassium Chloride Carbon Dioxide Anion Gap BUN Creatinine Estim Creat Clear Calc Est GFR (MDRD) Af Amer Est GFR (MDRD) Non-Af BUN/Creatinine Ratio Glucose Calcium Troponin I Crossmatch 12/28/18 12/28/18 12/28/18 12:30 19:55 19:55 WBC RBC Hgb 10.3 L Hct 29.5 L MCV MCH MCHC RDW RDW Differential Plt Count MPV Immature Gran % (Auto) Neut % (Auto) Lymph % (Auto) [place] % (Auto) Eos % (Auto) Baso % (Auto) Absolute Neuts (auto) Absolute Lymphs (auto) Total Counted PT INR APTT Fibrinogen Sodium Potassium Chloride Carbon Dioxide Anion Gap BUN Creatinine Estim Creat Clear Calc Est GFR (MDRD) Af Amer Est GFR (MDRD) Non-Af BUN/Creatinine Ratio Glucose Calcium Troponin I 0.340 H 0.107 H Crossmatch 12/29/18 12/29/18 12/29/18 00:00 00:30 03:55 WBC 4.3 L RBC 2.91 L Hgb Cancelled 9.2 L 9.1 L Hct Cancelled 28.0 L 26.4 L MCV 90.7 MCH 31.3 MCHC 34.5 RDW 13.2 RDW Differential 43.7 Plt Count 107 L MPV 10.3 Immature Gran % (Auto) 0.000 Neut % (Auto) 68.3 Lymph % (Auto) 20.4 [place] % (Auto) 11.3 H Eos % (Auto) 0.0 Baso % (Auto) 0.0 Absolute Neuts (auto) 2.9 Absolute Lymphs (auto) 0.87 Total Counted Not Reportable PT INR APTT Fibrinogen Sodium Potassium Chloride Carbon Dioxide Anion Gap BUN Creatinine Estim Creat Clear Calc Est GFR (MDRD) Af Amer Est GFR (MDRD) Non-Af BUN/Creatinine Ratio Glucose Calcium Troponin I Crossmatch 12/29/18 03:55 WBC RBC Hgb Hct MCV MCH MCHC RDW RDW Differential Plt Count MPV Immature Gran % (Auto) Neut % (Auto) Lymph % (Auto) [place] % (Auto) Eos % (Auto) Baso % (Auto) Absolute Neuts (auto) Absolute Lymphs (auto) Total Counted PT INR APTT Fibrinogen Sodium 143 Potassium 4.2 Chloride 109 H Carbon Dioxide 30.0 Anion Gap 4 L BUN 11 Creatinine 0.64 Estim Creat Clear Calc 92.83 Est GFR (MDRD) Af Amer 128 Est GFR (MDRD) Non-Af 105 BUN/Creatinine Ratio 17.2 Glucose 110 H Calcium 7.6 L Troponin I Crossmatch Medical Necessity - Tobacco Use Smoking Status: Never smoker Tobacco Use: Non-smoker Assessment/Plan All Active Problems (Last Reviewed 12/28/18 @ 09:18 by Maira Suárez DO) Pelvic pain (Acute) Abnormal uterine bleeding (AUB) (Acute) Adenomyosis (Acute) History of endometrial ablation (Acute) Hypotension (Acute) Bradycardia (Acute) Acute blood loss as cause of postoperative anemia (Acute) Hyponatremia (Acute) POD#2 s/p LAVH, BS, cysto and POD#1 s/p laparoscopy, evacuation of hematoma, placement of vaginal suture, cauterization of vaginal cuff, right oophorectomy - Stable overnight. Hgb has been stable and appropriate - Will advance diet to clears this morning - Encourage ambulation today - Recheck CBC at noon - If stable around lunch, will consider transfer out of the ICU
[2018-12-29] MEDS: oxyCODONE 5 MG Tablet PO (09:17)
[2018-12-29] MEDS: HYDROcodone Bitartrate/Apap 5/325 Tablet PO ×3 (11:28→23:56)
[2018-12-29 11:41] LABS: Hematocrit 26.3 % (37-47); Hemoglobin 8.9 g/dl (12.0-15.0)
--- NOTE | 2018-12-29 13:59 | CASEMGMT ---
KELIN SLOAN assessment: Face to Face with patient for initial transition planning/care coordination assessment. KELIN SLOAN introduced self and role at [facility], pt voices understanding and consents to assessment at this time. Pt is sitting up in bed in no distress at this time. Pt is A/Ox4 at this time and answers all questions approrpriately at this time. Care providers, pharmacy, and demographics verified at this time. PCP: Pt states does not currently have PCP and declines list at this time. Specialists: Declan Plug Machine Operator Preferred [facility]acy: [facility] Insurance: [employer] Prescription Benefit: [employer] Living Will/HPOA: Pt states has LW/HPOA and states that her , Rodo Monson, is HPOA. LNOK: Rodo Monson, Living Arrangements: Pt states lives with in 2 story home and states no concerns at home at this time. Pt is independent with ADL's. Transportation: Pt states drives self and states no transportation concerns at this time. DME/HHC: Pt states no current DME or need for any at this time. Pt states no hx of HHC or SNF in the past. Pt states no concerns with going home at time of discharge. Pt states is currently unemployed. Pt states does not smoke or drink ETOH. Pt states no further questions/concerns/needs at this time. CM to follow for any further discharge planning/needs. Advised pt to ask for CM if any further questions/concerns/needs arise, voices understanding. Pt Goal: Home Plan[place] KELIN SLOAN
[2018-12-29 16:57] LABS: Hematocrit 25.9 % (37-47); Hemoglobin 8.7 g/dl (12.0-15.0); Mean Corp Hgb Conc 33.6 g/gl (32-36); Mean Corpuscular Volume 92.2 fL (81-99); Mean Platelet Vol. 10.1 fl (6.2-12.0); Platelet Count 109 K/mm3 (150-450); RBC Distribution Width CV 13.4 % (11.6-14.6); RBC Distribution Width SD 45.5 fl (35.1-43.9); Red Blood Count 2.81 M/mm3 (4.2-5.4); Scan Indicated on CBC? Y/N NO; White Blood Count 4.8 K/mm3 (4.4-11.0)
[2018-12-29] MEDS: 0.9% NaCl Peripheral Flush Adult/Peds IV (17:25)
--- NOTE | 2018-12-29 19:05 | PN_ITS ---
Patient Problems: Active and Suspected Problems (Last Reviewed 12/28/18 @ 09:18 by Maira Suárez DO) Hypotension (Acute) Bradycardia (Acute) Acute blood loss as cause of postoperative anemia (Acute) Hyponatremia (Acute) Subjective: T-max 100 ?F. Blood pressure is normal and heart rate is within normal limits as well. She is 90 to 91% saturated on room air. Respiratory rate has ranged from 12-18. Fluid balance since admission is +5910. Most recent CBC was at 1600 and her hemoglobin is stable at 8.7. White blood ce ll count is 4.8 and the platelets are stable at 109,000. BMP this a.m. was unremarkable. Troponin was less than 0.015 in the early a.m. on 12/28/2018 and increased to 0.34 and then started to decline. She denies chest pain. Denies lightheadedness. She had a total of 3 units of packed red blood cells and 1 unit of fresh frozen plasma on 12/28/2018. She continues to complain of abdominal pain, predominantly in the upper quadrants, right greater than left She denies cough. No dysuria, no emesis, she does have some mild nausea. She is not coughing. Objective: PHYSICAL EXAM: GENERAL: alert, oriented X 3, Cooperative, NAD, much better color in her cheeks today and in the palpebral conjunctiva ORAL: moist mucosa, no mucosal lesions NECK: No JVD, supple, trachea midline LUNGS: Coarse crackles in both bases, symmetric chest expansion, no wheezing, no rhonchi, no conversational dyspnea, not tachypneic HEART: RRR, Normal S1 and S2, no rub, no gallop ABDOMEN: soft, tender to palpation in the RUQ mostly......no guarding today, ND, hypoactive BS present, no guarding with palpation EXTREMITIES: no edema, no cyanosis, no calf tenderness SKIN: No rashes, no breakdown NEUROLOGIC: no focal neurologic deficits PSYCH: appropriate, normal affect, pleasant - Physical Exam Vital Signs Temp Pulse Resp BP Pulse Ox 99.3 F H 81 12 132/82 H 91 12/29/18 16:00 12/29/18 16:00 12/29/18 16:00 12/29/18 16:00 12/29/18 16:00 Oxygen Flow Rate (L/min) 2 Oxygen Delivery Method Room Air Weight: 156 lb 4.924 oz Body Mass Index (BMI) 24.3 Intake and Output for Last 24 Hours 12/27/18 12/28/18 12/29/18 23:59 23:59 23:59 Intake Total 3613 / 3613 7195.5 / 7195.5 86.8 / 86.8 Output Total 1735 / 1735 2750 / 2750 500 / 500 Balance 1878 / 1878 4445.5 / 4445.5 -413.2 / -413.2 Laboratory Tests Past 24 Hrs 12/27/18 12/28/18 12/28/18 06:10 19:55 19:55 WBC RBC Hgb 10.3 L Hct 29.5 L MCV MCH MCHC RDW RDW Differential Plt Count MPV Immature Gran % (Auto) Neut % (Auto) Lymph % (Auto) [place] % (Auto) Eos % (Auto) Baso % (Auto) Absolute Neuts (auto) Absolute Lymphs (auto) Total Counted Sodium Potassium Chloride Carbon Dioxide Anion Gap BUN Creatinine Estim Creat Clear Calc Est GFR (MDRD) Af Amer Est GFR (MDRD) Non-Af BUN/Creatinine Ratio Glucose Calcium Troponin I 0.107 H Crossmatch See Detail 12/29/18 12/29/18 12/29/18 00:00 00:30 03:55 WBC 4.3 L RBC 2.91 L Hgb Cancelled 9.2 L 9.1 L Hct Cancelled 28.0 L 26.4 L MCV 90.7 MCH 31.3 MCHC 34.5 RDW 13.2 RDW Differential 43.7 Plt Count 107 L MPV 10.3 Immature Gran % (Auto) 0.000 Neut % (Auto) 68.3 Lymph % (Auto) 20.4 [place] % (Auto) 11.3 H Eos % (Auto) 0.0 Baso % (Auto) 0.0 Absolute Neuts (auto) 2.9 Absolute Lymphs (auto) 0.87 Total Counted Not Reportable Sodium Potassium Chloride Carbon Dioxide Anion Gap BUN Creatinine Estim Creat Clear Calc Est GFR (MDRD) Af Amer Est GFR (MDRD) Non-Af BUN/Creatinine Ratio Glucose Calcium Troponin I Crossmatch 12/29/18 12/29/18 12/29/18 03:55 11:30 16:40 WBC 4.8 RBC 2.81 L Hgb 8.9 L 8.7 L Hct 26.3 L 25.9 L MCV 92.2 MCH 31.0 MCHC 33.6 RDW 13.4 RDW Differential 45.5 H Plt Count 109 L MPV 10.1 Immature Gran % (Auto) Neut % (Auto) Lymph % (Auto) [place] % (Auto) Eos % (Auto) Baso % (Auto) Absolute Neuts (auto) Absolute Lymphs (auto) Total Counted Sodium 143 Potassium 4.2 Chloride 109 H Carbon Dioxide 30.0 Anion Gap 4 L BUN 11 Creatinine 0.64 Estim Creat Clear Calc 92.83 Est GFR (MDRD) Af Amer 128 Est GFR (MDRD) Non-Af 105 BUN/Creatinine Ratio 17.2 Glucose 110 H Calcium 7.6 L Troponin I Crossmatch Medical Necessity - Tobacco Use Smoking Status: Never smoker Tobacco Use: Non-smoker Assessment/Plan All Active Problems (Last Reviewed 12/28/18 @ 09:18 by Maira Suárez DO) Pelvic pain (Acute) Abnormal uterine bleeding (AUB) (Acute) Adenomyosis (Acute) History of endometrial ablation (Acute) Hypotension (Acute) Bradycardia (Acute) Acute blood loss as cause of postoperative anemia (Acute) Hyponatremia (Acute) Impressions 1. hemorrhagic shock 2. Bradycardia-unusual in a patient with hypotension secondary to hemorrhage. I suspect this was due to compression of the vagus nerve due to the large amount of blood in the Upper abd 3. Acute blood loss anemia 4. Postop day #2 status post laparoscopic assisted vaginal hysterectomy 5. Hyponatremia 6. History of hypertension 7. History of hyperlipidemia 8. Atelectasis Blood pressure and heart rate are stable off pressors Start incentive spirometry. If the pulse ox remains decreased in the a.m. we will obtain a PA and lateral chest x-ray Continue to monitor hemoglobin closely. Recheck lab in the a.m. Discussed with Dr. Manriquez Code Visit Inpatient E&M: 54483 Subs Hosp L2
[2018-12-29] MEDS: Rosuvastatin Calcium 5 MG Tablet PO (21:38)
[2018-12-30] VITALS (14 sets, daily range): BP systolic 109–155; BP diastolic 76–93; PULSE 57–79; RESP 12–24; TEMP 36.6–37.5; O2SAT 92–96
[2018-12-30 04:31] LABS: Hematocrit 25.1 % (37-47); Hemoglobin 8.2 g/dl (12.0-15.0); Mean Corp Hgb Conc 32.7 g/gl (32-36); Mean Corpuscular Hgb 30.6 pg (27.0-32.0); Mean Corpuscular Volume 93.7 fL (81-99); Mean Platelet Vol. 10.4 fl (6.2-12.0); Platelet Count 106 K/mm3 (150-450); RBC Distribution Width CV 12.9 % (11.6-14.6); RBC Distribution Width SD 42.6 fl (35.1-43.9); Red Blood Count 2.68 M/mm3 (4.2-5.4); White Blood Count 4.3 K/mm3 (4.4-11.0)
[2018-12-30 04:32] LABS: Scan Indicated on CBC? Y/N NO
[2018-12-30] MEDS: HYDROcodone Bitartrate/Apap 5/325 Tablet PO (06:02)
--- NOTE | 2018-12-30 06:27 | PN_ITS ---
Subjective: The patient was seen and examined at the bedside this morning. Events from the last 24 hours have been reviewed. The patient is currently afebrile, hemodynamically stable and maintaining appropriate oxygen saturations on 2 L/min via nasal cannula. No overnight issues were identified by the nursing staff. Hemoglobin is stable this morning. Objective: The patient's most recent lab work, culture data and imaging studies have all been personally reviewed. General: Alert, Cooperative, No apparent distress HEENT: Atraumatic, PERRLA, Normocephalic Oral: No Gingival or Mucosal Lesions/ Ulcerations Neck: Supple, No Nodes, Trachea Midline Lungs: No rhonchi, No wheeze, No rales, Diminished Cardiovascular: Regular rate, Regular Rhythm, Normal S1, Normal S2, No murmurs Abdomen: Bowel Sounds Present, Soft, Non-Distended Extremities: No clubbing, No cyanosis Skin: - - No significant change from previous Musculoskeletal: No Tenderness to Palpation of Joints or Extremities, No Muscle Wasting Lymphatic: No Cervical, Supraclavicular, or Inguinal Adenopathy Neurological: Cranial nerves II-XII grossly intact, Neuro grossly intact Psych/Mental Status: Alert and oriented to time, place, person, mood and affect Vital Signs Temp Pulse Resp BP Pulse Ox 98.1 F 61 16 125/84 H 93 12/30/18 04:00 12/30/18 06:00 12/30/18 06:00 12/30/18 06:00 12/30/18 06:00 Oxygen Flow Rate (L/min) 2 Oxygen Delivery Method Nasal Cannula Weight: 153 lb 0.013 oz Body Mass Index (BMI) 24.3 Intake and Output for Last 24 Hours 12/28/18 12/29/18 12/30/18 23:59 23:59 23:59 Intake Total 7195.5 / 7195.5 1146.8 / 1386.8 400 / 400 Output Total 2750 / 2750 1950 / 2450 1150 / 1150 Balance 4445.5 / 4445.5 -803.2 / -1063.2 -750 / -750 Labs (Last 48 Hours) 12/27/18 12/27/18 12/28/18 06:10 06:10 05:04 WBC RBC Hgb Hct MCV MCH MCHC RDW RDW Differential Plt Count MPV Immature Gran % (Auto) Neut % (Auto) Lymph % (Auto) [place] % (Auto) Eos % (Auto) Baso % (Auto) Absolute Neuts (auto) Absolute Lymphs (auto) Total Counted PT INR APTT Fibrinogen Sodium 132 L Potassium 3.8 Chloride 103 Carbon Dioxide 27.0 Anion Gap 2 L BUN 13 Creatinine 0.87 Estim Creat Clear Calc 68.29 Est GFR (MDRD) Af Amer 89 Est GFR (MDRD) Non-Af 74 BUN/Creatinine Ratio 14.9 Glucose 122 H Calcium 7.8 L Magnesium 2.2 Total Bilirubin 0.50 AST 12 L ALT 11 L Alkaline Phosphatase 43 L Troponin I Total Protein 5.5 L Albumin 3.0 L Globulin 2.5 Albumin/Globulin Ratio 1.2 POC Glucose Crossmatch See Detail See Detail 12/28/18 12/28/18 12/28/18 05:04 07:42 08:00 WBC 14.9 H RBC 2.35 L Hgb 7.5 L Hct 21.4 L MCV 91.1 MCH 31.9 MCHC 35.0 RDW 11.8 RDW Differential 37.3 Plt Count 190 MPV 10.6 Immature Gran % (Auto) Neut % (Auto) Lymph % (Auto) [place] % (Auto) Eos % (Auto) Baso % (Auto) Absolute Neuts (auto) Absolute Lymphs (auto) Total Counted PT INR APTT Fibrinogen Sodium Potassium Chloride Carbon Dioxide Anion Gap BUN Creatinine Estim Creat Clear Calc Est GFR (MDRD) Af Amer Est GFR (MDRD) Non-Af BUN/Creatinine Ratio Glucose Calcium Magnesium Total Bilirubin AST ALT Alkaline Phosphatase Troponin I < 0.015 Total Protein Albumin Globulin Albumin/Globulin Ratio POC Glucose 151 H Crossmatch 12/28/18 12/28/18 12/28/18 08:00 12:30 12:30 WBC 10.8 RBC 3.58 L Hgb 11.2 L Hct 32.1 L MCV 89.7 MCH 31.3 MCHC 34.9 RDW 12.9 RDW Differential 41.6 Plt Count 119 L MPV 10.2 Immature Gran % (Auto) Neut % (Auto) Lymph % (Auto) [place] % (Auto) Eos % (Auto) Baso % (Auto) Absolute Neuts (auto) Absolute Lymphs (auto) Total Counted PT 15.3 H INR 1.2 APTT 25.7 Fibrinogen 184 L Sodium Potassium Chloride Carbon Dioxide Anion Gap BUN Creatinine Estim Creat Clear Calc Est GFR (MDRD) Af Amer Est GFR (MDRD) Non-Af BUN/Creatinine Ratio Glucose Calcium Magnesium Total Bilirubin AST ALT Alkaline Phosphatase Troponin I 0.340 H Total Protein Albumin Globulin Albumin/Globulin Ratio POC Glucose Crossmatch 12/28/18 12/28/18 12/29/18 19:55 19:55 00:00 WBC RBC Hgb 10.3 L Cancelled Hct 29.5 L Cancelled MCV MCH MCHC RDW RDW Differential Plt Count MPV Immature Gran % (Auto) Neut % (Auto) Lymph % (Auto) [place] % (Auto) Eos % (Auto) Baso % (Auto) Absolute Neuts (auto) Absolute Lymphs (auto) Total Counted PT INR APTT Fibrinogen Sodium Potassium Chloride Carbon Dioxide Anion Gap BUN Creatinine Estim Creat Clear Calc Est GFR (MDRD) Af Amer Est GFR (MDRD) Non-Af BUN/Creatinine Ratio Glucose Calcium Magnesium Total Bilirubin AST ALT Alkaline Phosphatase Troponin I 0.107 H Total Protein Albumin Globulin Albumin/Globulin Ratio POC Glucose Crossmatch 12/29/18 12/29/18 12/29/18 00:30 03:55 03:55 WBC 4.3 L RBC 2.91 L Hgb 9.2 L 9.1 L Hct 28.0 L 26.4 L MCV 90.7 MCH 31.3 MCHC 34.5 RDW 13.2 RDW Differential 43.7 Plt Count 107 L MPV 10.3 Immature Gran % (Auto) 0.000 Neut % (Auto) 68.3 Lymph % (Auto) 20.4 [place] % (Auto) 11.3 H Eos % (Auto) 0.0 Baso % (Auto) 0.0 Absolute Neuts (auto) 2.9 Absolute Lymphs (auto) 0.87 Total Counted Not Reportable PT INR APTT Fibrinogen Sodium 143 Potassium 4.2 Chloride 109 H Carbon Dioxide 30.0 Anion Gap 4 L BUN 11 Creatinine 0.64 Estim Creat Clear Calc 92.83 Est GFR (MDRD) Af Amer 128 Est GFR (MDRD) Non-Af 105 BUN/Creatinine Ratio 17.2 Glucose 110 H Calcium 7.6 L Magnesium Total Bilirubin AST ALT Alkaline Phosphatase Troponin I Total Protein Albumin Globulin Albumin/Globulin Ratio POC Glucose Crossmatch 12/29/18 12/29/18 12/30/18 11:30 16:40 04:10 WBC 4.8 4.3 L RBC 2.81 L 2.68 L Hgb 8.9 L 8.7 L 8.2 L Hct 26.3 L 25.9 L 25.1 L MCV 92.2 93.7 MCH 31.0 30.6 MCHC 33.6 32.7 RDW 13.4 12.9 RDW Differential 45.5 H 42.6 Plt Count 109 L 106 L MPV 10.1 10.4 Immature Gran % (Auto) Neut % (Auto) Lymph % (Auto) [place] % (Auto) Eos % (Auto) Baso % (Auto) Absolute Neuts (auto) Absolute Lymphs (auto) Total Counted PT INR APTT Fibrinogen Sodium Potassium Chloride Carbon Dioxide Anion Gap BUN Creatinine Estim Creat Clear Calc Est GFR (MDRD) Af Amer Est GFR (MDRD) Non-Af BUN/Creatinine Ratio Glucose Calcium Magnesium Total Bilirubin AST ALT Alkaline Phosphatase Troponin I Total Protein Albumin Globulin Albumin/Globulin Ratio POC Glucose Crossmatch Clinical Impression(s) from Imaging Studies Abdomen/Pelvis CT 12/28/18 08:09 IMPRESSION: 1. Large amount of pelvic hemorrhage and abdominal fluid. This is presumably related to the recent section. 2. Bilateral basilar airspace consolidation and atelectasis. N.B. : Dr Jose Armando MD, confirmed on 12/28/2018 14:13:22 (ET) that the referring physician received the results and does not require a verbal communication. Electronically Signed: Shilpi Puckett MD at 11:41 EDT , Service support , ADDENDUM: 12/29/18 1000 Chest X-Ray 12/28/18 08:19 IMPRESSION: No acute pulmonary process. Right central venous catheter has been placed, tip is in the right atrium. Electronically Signed: Issa Coulter MD at 12:45 EDT , Service support , Medical Necessity - Tobacco Use Smoking Status: Never smoker Tobacco Use: Non-smoker Assessment/Plan All Active Problems (Last Reviewed 12/28/18 @ 09:18 by Maira Suárez DO) Pelvic pain (Acute) Abnormal uterine bleeding (AUB) (Acute) Adenomyosis (Acute) History of endometrial ablation (Acute) Hypotension (Acute) Bradycardia (Acute) Acute blood loss as cause of postoperative anemia (Acute) Hyponatremia (Acute) RECOMMENDATIONS: 1. Continue current pain control regimen. 2. Continue to monitor blood counts. Transfuse if hemoglobin drops below 7 g/dL. 3. Dietary advancement per POSITION DESCRIPTION MANAGER recommendations. 4. Encourage incentive spirometer use and mobilize patient as tolerated. 5. Wean supplemental oxygen to maintain saturations at or above 90%. IMPRESSIONS: 1. Hemorrhagic shock Resolved. The patient developed acute blood loss anemia and subsequent hypotension following surgical intervention on 12/27, during which time she underwent LAVH, BS, and cysto. The patient was transferred emergently to the [facility]. The patient was supported with IV fluids, vasopressors and blood products. She stabilized clinically and was taken back to the OR on 12/28 for evacuation of intra-abdominal hematomas. The patient does not currently have a need for vasopressor support. Her blood counts have remained stable. Recommend continuing current supportive measures including pain control as ordered. Continue to monitor blood counts, with plans to transfuse for hemoglobin less than 7 g/dL. Dietary advancement per POSITION DESCRIPTION MANAGER recommendations. The patient's supplemental oxygen requirement is likely secondary to atelectasis. The patient was strongly encouraged to utilize her incentive spirometer. Mobilize patient as tolerated. This note was generated with [employer] dictation software. It may contain incorrect words, spelling, and punctuation that were not noted in checking the note before signing. Code Visit Inpatient E&M: 05989 Subs Hosp L2
--- NOTE | 2018-12-30 07:29 | PN_ITS ---
Patient Problems: Active and Suspected Problems (Last Reviewed 12/28/18 @ 09:18 by Maira Suárez, ) Hypotension (Acute) Bradycardia (Acute) Acute blood loss as cause of postoperative anemia (Acute) Hyponatremia (Acute) Subjective: T-max 100 ?F. Current temp is 98.1. Blood pressure is within normal limits and so his heart rate. She is 93 to 96% saturated on a 2 L nasal cannula today. Hemoglobin today is 8.2 and platelets are 106,000. Objective: Alert and oriented x3, no apparent distress, sitting up in chair. Heart-regular rate and rhythm, no murmur, no gallop, no rub Telemetry shows normal sinus rhythm with no significant ectopy Lungs-patient is hypoventilating secondary to abdominal pain with a deep breath. Breath sounds in the bases are markedly diminished. No rales, no wheezes, no rhonchi. There is symmetric chest expansion. She has no conversational dyspnea and no accessory muscle use. Abdomen-soft, mildly distended, painful to palpation especially in the lower quadrants but no guarding with palpation, bowel sounds present No peripheral edema, no calf tenderness - Physical Exam Vital Signs Temp Pulse Resp BP Pulse Ox 98.1 F 57 L 14 133/83 H 96 12/30/18 04:00 12/30/18 07:00 12/30/18 07:00 12/30/18 07:00 12/30/18 07:00 Oxygen Flow Rate (L/min) 2 Oxygen Delivery Method Nasal Cannula Weight: 153 lb 0.013 oz Body Mass Index (BMI) 24.3 Intake and Output for Last 24 Hours 12/28/18 12/29/18 12/30/18 23:59 23:59 23:59 Intake Total 7195.5 / 7195.5 1146.8 / 1386.8 400 / 400 Output Total 2750 / 2750 1950 / 2450 1150 / 1150 Balance 4445.5 / 4445.5 -803.2 / -1063.2 -750 / -750 Laboratory Tests Past 24 Hrs 12/27/18 12/29/18 12/29/18 06:10 11:30 16:40 WBC 4.8 RBC 2.81 L Hgb 8.9 L 8.7 L Hct 26.3 L 25.9 L MCV 92.2 MCH 31.0 MCHC 33.6 RDW 13.4 RDW Differential 45.5 H Plt Count 109 L MPV 10.1 Crossmatch See Detail 12/30/18 04:10 WBC 4.3 L RBC 2.68 L Hgb 8.2 L Hct 25.1 L MCV 93.7 MCH 30.6 MCHC 32.7 RDW 12.9 RDW Differential 42.6 Plt Count 106 L MPV 10.4 Crossmatch Medical Necessity - Tobacco Use Smoking Status: Never smoker Tobacco Use: Non-smoker Assessment/Plan All Active Problems (Last Reviewed 12/28/18 @ 09:18 by Maira Suárez DO) Pelvic pain (Acute) Abnormal uterine bleeding (AUB) (Acute) Adenomyosis (Acute) History of endometrial ablation (Acute) Hypotension (Acute) Bradycardia (Acute) Acute blood loss as cause of postoperative anemia (Acute) Hyponatremia (Acute) Impressions 1. hemorrhagic shock 2. Bradycardia-unusual in a patient with hypotension secondary to hemorrhage. I suspect this was due to compression of the vagus nerve due to the large amount of blood in the Upper abd 3. Acute blood loss anemia 4. Postop day #2 status post laparoscopic assisted vaginal hysterectomy 5. Hyponatremia 6. History of hypertension 7. History of hyperlipidemia 8. Atelectasis 9. Thrombocytopenia-secondary to large amount of acute blood loss Transfer to [facility] and lateral chest x-ray today Simethicone 80 mg PC and at bedtime for gaseous distention and abdominal cramping Schedule Motrin 600 mg p.o. every 8 hours Reinforced the need to get up and ambulate and religiously use the incentive spirometer to resolve atelectasis Recheck CBC in the a.m. Advance diet to full liquid Discussed with Dr. Manriquez Code Visit Inpatient E&M: [id number] Subs Hosp L2
--- NOTE | 2018-12-30 08:30 | PCM.PN.OB ---
Patient Problems: Active and Suspected Problems (Last Reviewed 12/28/18 @ 09:18 by Maira Suárez DO) Hypotension (Acute) Bradycardia (Acute) Acute blood loss as cause of postoperative anemia (Acute) Hyponatremia (Acute) Subjective: Patient doing well this morning. Has been ambulating, and had 1 episode of lightheadedness after a position change that then resolved. Otherwise ambulating without lightheadedness or dizziness. Denies CP, SOB, palpitations. She does feel like she cannot take a deep breath in and is on 2L NC. Tolerating clears without nausea or vomiting. Continuing to pass flatus. Spontaneously voiding without difficulty. - Physical Exam General: Alert, No apparent distress HEENT: Atraumatic Lungs: - - No increased resp effort Abdomen: Soft, - - ATTP, minimal distension, no rebounding, no gaurding, no rigidity, incisions are c/d/i Extremities: No edema, No Calf Tenderness Skin: No rashes Neurological: Neuro grossly intact Psych/Mental Status: Normal Affect, Appropriate Vital Signs Temp Pulse Resp BP Pulse Ox 98.1 F 57 L 14 133/83 H 96 12/30/18 04:00 12/30/18 07:00 12/30/18 07:00 12/30/18 07:00 12/30/18 07:00 Oxygen Flow Rate (L/min) 2 Oxygen Delivery Method Room Air Weight: 153 lb 0.013 oz Body Mass Index (BMI) 24.3 Intake and Output for Last 24 Hours 12/28/18 12/29/18 12/30/18 23:59 23:59 23:59 Intake Total 7195.5 / 7195.5 1146.8 / 1386.8 400 / 400 Output Total 2750 / 2750 1950 / 2450 1150 / 1150 Balance 4445.5 / 4445.5 -803.2 / -1063.2 -750 / -750 Laboratory Tests Past 24 Hrs 12/27/18 12/29/18 12/29/18 06:10 11:30 16:40 WBC 4.8 RBC 2.81 L Hgb 8.9 L 8.7 L Hct 26.3 L 25.9 L MCV 92.2 MCH 31.0 MCHC 33.6 RDW 13.4 RDW Differential 45.5 H Plt Count 109 L MPV 10.1 Crossmatch See Detail 12/30/18 04:10 WBC 4.3 L RBC 2.68 L Hgb 8.2 L Hct 25.1 L MCV 93.7 MCH 30.6 MCHC 32.7 RDW 12.9 RDW Differential 42.6 Plt Count 106 L MPV 10.4 Crossmatch Medical Necessity - Tobacco Use Smoking Status: Never smoker Tobacco Use: Non-smoker Assessment/Plan All Active Problems (Last Reviewed 12/28/18 @ 09:18 by Maira Suárez, DO) Pelvic pain (Acute) Abnormal uterine bleeding (AUB) (Acute) Adenomyosis (Acute) History of endometrial ablation (Acute) Hypotension (Acute) Bradycardia (Acute) Acute blood loss as cause of postoperative anemia (Acute) Hyponatremia (Acute) POD#3 s/p LAVH, BS, cysto and POD#2 s/p laparoscopic evacuation of hematoma, placement of vaginal suture, cauterization of posterior vaginal cuff, right oophorectomy - Patient doing well this morning. HD stable. Hgb has been stable x 3 - Will advance diet to fulls today. If she tolerates fulls, will advance to regular diet tonight - On 2L NC. Continue IS use. CXR today - Continue to encourage ambulation - Will repeat CBC in AM - Transfer out of ICU - Dispo: Possible d/c home later in the day tomorrow
--- NOTE | 2018-12-30 09:04 | NURSING ---
report called to MS[facility] KELIN Zafar.
--- NOTE | 2018-12-30 09:21 | RAD_ITS ---
STUDY: X-RAY CHEST REASON FOR EXAM: Female, 48 years old. TECHNIQUE: 2 views COMPARISON: December 28, 2018 FINDINGS: There is relatively significant right-sided pleural effusion which is new since the last exam. The rest of the right lung as well as the left lung are clear. There is central venous line with the tip in the superior vena cava close to the right atrium. The trachea is in the midline. The cardiac silhouette is not enlarged. The visualized bones are intact. RAD/Chest PA and Lateral IMPRESSION: Newly developed right-sided pleural effusion since December 28, 2018. Electronically Signed: Manoj Swartz, at 11:29 EDT Tel , Service support ,
[2018-12-30] MEDS: Docusate Sodium 100 MG Capsule PO ×2 (10:09→21:44)
[2018-12-30] MEDS: Furosemide 20 MG/2 ML VIAL IV (12:15)
[2018-12-30] MEDS: Ibuprofen 600 MG Tablet PO ×2 (12:15→21:47)
[2018-12-30] MEDS: 0.9% NaCl Peripheral Flush Adult/Peds IV (12:16)
[2018-12-30] MEDS: Sodium Chloride 0.65% 1 SPRAY SPRAY.BTL NASAL (15:54)
[2018-12-30] MEDS: Rosuvastatin Calcium 5 MG Tablet PO (21:44)
[2018-12-31 02:23] VITALS: BP 130/82; PULSE 55; RESP 16; TEMP 36.8; O2SAT 96
[2018-12-31] MEDS: HYDROcodone Bitartrate/Apap 5/325 Tablet PO (02:28)
[2018-12-31 05:33] LABS: Hematocrit 25.8 % (37-47); Hemoglobin 8.8 g/dl (12.0-15.0); Mean Corp Hgb Conc 34.1 g/gl (32-36); Mean Corpuscular Hgb 31.3 pg (27.0-32.0); Mean Corpuscular Volume 91.8 fL (81-99); Mean Platelet Vol. 10.3 fl (6.2-12.0); Platelet Count 129 K/mm3 (150-450); RBC Distribution Width CV 12.4 % (11.6-14.6); RBC Distribution Width SD 39.8 fl (35.1-43.9); Red Blood Count 2.81 M/mm3 (4.2-5.4); White Blood Count 5.1 K/mm3 (4.4-11.0)
[2018-12-31 05:35] LABS: Scan Indicated on CBC? Y/N NO
[2018-12-31] MEDS: Ibuprofen 600 MG Tablet PO ×2 (05:39→12:56)
[2018-12-31] MEDS: 0.9% NaCl Peripheral Flush Adult/Peds IV (05:39)
[2018-12-31 05:47] LABS: Anion Gap 6 (5-15); BUN 7 mg/dL (7-18); BUN/Creat Ratio 11.5 RATIO (10-20); Calcium,Total 8.2 mg/dL (8.5-10.1); Chloride 106 mmol/L (98-107); Creatinine, Serum 0.61 mg/dL (0.55-1.02); EST Glomerular Filtration Rate 111 mL/min (>60); Est Glom Filt Rate - Afr Amer 135 mL/min (>60); Estimated Creatinine Clearance 97.39 ml/min; Glucose 93 mg/dL (74-106); Magnesium 1.9 mg/dL (1.6-2.6); Potassium 3.4 mmol/L (3.5-5.1); Sodium Level 144 mmol/L (136-145)
[2018-12-31 07:36] VITALS: O2SAT 98
--- NOTE | 2018-12-31 08:00 | PCM.PN.OB ---
Patient Problems: Active and Suspected Problems (Last Reviewed 12/28/18 @ 09:18 by Maira Suárez DO) Hypotension (Acute) Bradycardia (Acute) Acute blood loss as cause of postoperative anemia (Acute) Hyponatremia (Acute) Subjective: Patient doing well. Tolerated a regular diet last night without nausea or vomiting. Passing flatus. Ambulated three times in the hallway yesterday without difficulty, and is currently up to the chair. Denies lightheadedness, dizziness, CP, SOB, leg pain. No vaginal bleeding. Spontaneously voiding without difficulty. Feels some abdominal distension, and abdominal pain is well controlled. Has some left lower back pain as well. Denies urinary symptoms. - Physical Exam General: Alert, No apparent distress HEENT: Atraumatic Lungs: - - No increased resp effort Abdomen: Soft, - - ATTP, +minimal distension, no rebounding, no gaurding, no rigidity Extremities: No edema, No Calf Tenderness Skin: No rashes Neurological: Neuro grossly intact Psych/Mental Status: Normal Affect, Appropriate Vital Signs Temp Pulse Resp BP Pulse Ox 98.3 F 55 L 16 130/82 H 96 12/31/18 02:23 12/31/18 02:23 12/31/18 02:23 12/31/18 02:23 12/31/18 02:23 Oxygen Flow Rate (L/min) 1.5 Oxygen Delivery Method Nasal Cannula Weight: 146 lb 9.718 oz Body Mass Index (BMI) 24.3 Intake and Output for Last 24 Hours 12/29/18 12/30/18 12/31/18 23:59 23:59 23:59 Intake Total 1146.8 / 1386.8 1830 / 1830 200 / 200 Output Total 1950 / 2450 4325 / 4325 350 / 350 Balance -803.2 / -1063.2 -2495 / -2495 -150 / -150 Laboratory Tests Past 24 Hrs 12/31/18 12/31/18 05:20 05:20 WBC 5.1 RBC 2.81 L Hgb 8.8 L Hct 25.8 L MCV 91.8 MCH 31.3 MCHC 34.1 RDW 12.4 RDW Differential 39.8 Plt Count 129 L MPV 10.3 Sodium 144 Potassium 3.4 L Chloride 106 Carbon Dioxide 32.0 Anion Gap 6 BUN 7 Creatinine 0.61 Estim Creat Clear Calc 97.39 Est GFR (MDRD) Af Amer 135 Est GFR (MDRD) Non-Af 111 BUN/Creatinine Ratio 11.5 Glucose 93 Calcium 8.2 L Magnesium 1.9 Medical Necessity - Tobacco Use Smoking Status: Never smoker Tobacco Use: Non-smoker Assessment/Plan All Active Problems (Last Reviewed 12/28/18 @ 09:18 by Maira Suárez, DO) Pelvic pain (Acute) Abnormal uterine bleeding (AUB) (Acute) Adenomyosis (Acute) History of endometrial ablation (Acute) Hypotension (Acute) Bradycardia (Acute) Acute blood loss as cause of postoperative anemia (Acute) Hyponatremia (Acute) POD#4 s/p LAVH, BS, cysto and POD#3 s/p laparoscopic evacuation fo hematoma, vaginal suture placement, cauterization of vaginal cuff, right oophorectomy - HD stable. Hgb stable again this AM - Tolerating a regular diet and passing flatus - Pain is controlled - Meeting all post-op milestones for discharge today - CXR with pleural effusion and s/p Lasix's yesterday. 98% on RA this AM - Appreciate assistance from medicine. Will await recommendations from medicine this morning. Possible discharge to home later today
[2018-12-31 08:05] VITALS: BP 159/91; PULSE 56; RESP 18; TEMP 36.7; O2SAT 97
--- NOTE | 2018-12-31 08:07 | DCINST_ITS ---
- Discharge Diagnoses Current Active Problems: Current Active and Chronic Problems (Last Reviewed 12/28/18 @ 09:18 by Maira Suárez DO) Hypotension (Acute) Bradycardia (Acute) Acute blood loss as cause of postoperative anemia (Acute) HLD (hyperlipidemia) (Chronic) Hyponatremia (Acute) HTN (hypertension) (Chronic) Interstitial cystitis (Chronic) You will use the following diet at home:: Regular Discharge Activity: May not drive while taking narcotic pain medications., May Shower, - - May not take a tub bath May shower in (days): 0 May resume sexual activity in: 6 weeks Weight Bearing Status: Weight bearing as tolerated Lifting Restrictions: No heavy lifting greater than 15-20 pounds Call your doctor if your incision/area has: Increased Pain/ Swelling, Increased Redness, Foul Smelling Discharge, Swelling at the incision site Call your doctor if you observe: Fever of 101 or Higher, Inability to urinate, Inability to have a bowel movement, Using more than one pad per hour, Shortness of breath, Dizziness, Fainting spells, Chest pain, Increased palpitations (irregular heartbeat), Calf discomfort, Uncontrolled pain Suture Line Care: Avoid Pinching/Bending Cleanse incision/area with: Soap & Water Instructions: Recovering from Hysterectomy Allergies/Adverse Reactions: Allergies No Known Allergies Allergy (Verified 12/20/18 15:20) Medications to take at Discharge Cyanocobalamin (Vitamin B-12) [Vitamin B-12] 1,000 mcg PO DAILY 12/20/18 Lisinopril [Zestril] 5 mg PO DAILY 12/20/18 Multivitamin with Minerals [Multiple Vitamin] 1 each PO DAILY 12/20/18 Rosuvastatin Calcium [Crestor] 5 mg PO QHS 12/20/18 Docusate Sodium [Colace] 100 mg PO BID #60 cap 12/31/18 Ferrous Sulfate 325 mg PO DAILY #60 tab 12/31/18 Ibuprofen [Motrin] 600 mg PO Q6H PRN PRN #30 tab 12/31/18 The following prescriptions were given: Docusate Sodium [Colace] 100 mg PO BID #60 cap Prescription Printed Ferrous Sulfate 325 mg PO DAILY #60 tab Prescription Printed Ibuprofen [Motrin] 600 mg PO Q6H PRN PRN #30 tab PRN Reason: Pain Prescription Printed Primary Care Physician: Care Physician,No Primary [Primary Care Provider] - Test Results: Test results from this visit will be discussed in further detail at your follow- up appointment, if applicable. Please Follow Up With: Rose Manriquez DO When: 1 week Proposed Discharge Date: 12/31/18
[2018-12-31] MEDS: Docusate Sodium 100 MG Capsule PO (08:08)
--- NOTE | 2018-12-31 08:45 | PCM.PROGNOTE ---
Patient Problems: Active and Suspected Problems (Last Reviewed 12/28/18 @ 09:18 by Maira Suárez DO) Hypotension (Acute) Bradycardia (Acute) Acute blood loss as cause of postoperative anemia (Acute) Hyponatremia (Acute) Subjective: Afebrile, vital signs stable. Blood pressure is now mildly increased and she is on lisinopril as an outpatient so will restart. She received 20 mg of Lasix IV yesterday for Hypoxia and right pleural effusion on chest x-ray. Pulse ox is currently 97% on room air. Labs shows a mildly decreased potassium at 3.4. Hemoglobin is stable at 8.8. Feeling much better today. Less abdominal pain, breathing is easier. Denies CP, SOB at rest. No ankle swelling. She is being discharged today. Objective: PHYSICAL EXAM: GENERAL: alert, oriented X 3, Cooperative, NAD, good color in her face today, looks as though she is felling much better and appears well rested. slept well last night. ORAL: moist mucosa, no mucosal lesions NECK: No JVD, supple, trachea midline LUNGS: still mildly diminished in the bases, no rales, no wheezes, no rhonchi HEART: RRR, Normal S1 and S2, no rub, no gallop ABDOMEN: soft, NT, ND, BS present, no guarding with palpation EXTREMITIES: no edema, no cyanosis, no calf tenderness SKIN: No rashes, no breakdown NEUROLOGIC: no focal neurologic deficits PSYCH: appropriate, normal affect, pleasant - Physical Exam Vital Signs Temp Pulse Resp BP Pulse Ox 98.0 F 56 L 18 159/91 H 97 12/31/18 08:05 12/31/18 08:05 12/31/18 08:05 12/31/18 08:05 12/31/18 08:05 Oxygen Flow Rate (L/min) 1.5 Oxygen Delivery Method Room Air Weight: 146 lb 9.718 oz Body Mass Index (BMI) 24.3 Intake and Output for Last 24 Hours 12/29/18 12/30/18 12/31/18 23:59 23:59 23:59 Intake Total 1146.8 / 1386.8 1830 / 1830 200 / 200 Output Total 1950 / 2450 4325 / 4325 350 / 350 Balance -803.2 / -1063.2 -2495 / -2495 -150 / -150 Laboratory Tests Past 24 Hrs 12/31/18 12/31/18 05:20 05:20 WBC 5.1 RBC 2.81 L Hgb 8.8 L Hct 25.8 L MCV 91.8 MCH 31.3 MCHC 34.1 RDW 12.4 RDW Differential 39.8 Plt Count 129 L MPV 10.3 Sodium 144 Potassium 3.4 L Chloride 106 Carbon Dioxide 32.0 Anion Gap 6 BUN 7 Creatinine 0.61 Estim Creat Clear Calc 97.39 Est GFR (MDRD) Af Amer 135 Est GFR (MDRD) Non-Af 111 BUN/Creatinine Ratio 11.5 Glucose 93 Calcium 8.2 L Magnesium 1.9 Medical Necessity - Tobacco Use Smoking Status: Never smoker Tobacco Use: Non-smoker Assessment/Plan All Active Problems (Last Reviewed 12/28/18 @ 09:18 by Maira Suárez DO) Pelvic pain (Acute) Abnormal uterine bleeding (AUB) (Acute) Adenomyosis (Acute) History of endometrial ablation (Acute) Hypotension (Acute) Bradycardia (Acute) Acute blood loss as cause of postoperative anemia (Acute) Hyponatremia (Acute) Impressions 1. hemorrhagic shock due to acute blood loss after LAVH. TAken back to surgery to evacuate clot 2. Bradycardia-unusual in a patient with hypotension secondary to hemorrhage. I suspect this was due to compression of the vagus nerve due to the large amount of blood in the Upper abd 3. Acute blood loss anemia -hemoglobin is stable 4. Postop day #4 status post laparoscopic assisted vaginal hysterectomy 5. Hyponatremia-resolved 6. History of hypertension 7. History of hyperlipidemia 8. Atelectasis/right pleural effusion secondary to fluid/blood resuscitation for hemorrhagic shock. Currently 97% on room air. Better breath sounds following Lasix yesterday and ambulation. 9. Thrombocytopenia-secondary to large amount of acute blood loss....starting to increase 10. Hypokalemia Potassium 40 mEq p.o. now Restart lisinopril 5 mg p.o. daily Discharge today-orders written by Dr. Manriquez Pt instructed to rest and gradually increase activity as tolerated. She was advised to take the incentive spirometer home with her and continue to use it every hour while awake OK to DC per medicine Thank you for consulting and trusting the hospitalist service in help manage medical problems in your patient. Code Visit Inpatient E&M: 67646 Subs Hosp L1
[2018-12-31] MEDS: Lisinopril 5 MG Tablet PO (10:12)
[2018-12-31 12:00] VITALS: BP 152/76; PULSE 63; RESP 18; TEMP 37.1; O2SAT 97
[2018-12-31 13:15] VITALS: BP 152/76; PULSE 63; RESP 18; TEMP 37.1; O2SAT 97
--- NOTE | 2019-01-03 15:09 | DS.PCM_ITS ---
Discharge Date and Diagnosis Date of Admission: 12/27/18 Date of Discharge: 12/31/18 - Secondary Discharge Diagnosis Chronic Problems (Last Reviewed 12/28/18 @ 09:18 by Maira Suárez DO) HLD (hyperlipidemia) (Chronic) HTN (hypertension) (Chronic) Interstitial cystitis (Chronic) Hospital Course and Treatment Imaging Results: CTAP: IMPRESSION: 1. Large amount of pelvic hemorrhage and abdominal fluid. This is presumably related to recent hysterectomy. 2. Bilateral basilar airspace consolidation and atelectasis CXR: FINDINGS: There is relatively significant right-sided pleural effusion which is new since the last exam. The rest of the right lung as well as the left lung are clear. There is central venous line with the tip in the superior vena cava close to the right atrium. The trachea is in the midline. The cardiac silhouette is not enlarged. The visualized bones are intact. Medicine/hospitalist consult Test Facility Engineer consult Operations: - - LAVH, BS, cysto and diagnostic laparoscopy, removal of abdominal/pelvic hematoma, right oophorectomy, cauterization of vaginal cuff, suture placement of vaginal cuff Summary of Care Provided: The patient is a 48 year old F who was admitted for an LAVH, BS, cysto for adenomyosis, pelvic pain, AUB, and history of a prior endometrial ablation. See operative report for details. The surgery was without complication. The patient did well overnight. The following morning the patients hemoglobin was initially found to be stable after an episode of syncope after using the restroom. She was persistently hypotensive and bradycardic, and was found to have a Hgb of 7 on repeat. She was transferred to the ICU where she was on pressor support as she was not responsive to IVF hydration. She was given 3 units of PRBC's. A CTAP showed a large amount of blood in her abdomen and pelvis. Once she was stable she was taken back to operating room for a diagnostic laparoscopy where no obvious active source of hemorrhage was noted. She then remained HD stable after the surgery with a Hgb of 8. She was tolerating a regular diet, ambulating, voiding without difficulty, and pain was well controlled. She was discharged to home in good condition. - Physical Exam Vital Signs Temp Pulse Resp BP Pulse Ox 98.8 F 63 18 152/76 H 97 12/31/18 13:15 12/31/18 13:15 12/31/18 13:15 12/31/18 13:15 12/31/18 13:15 Oxygen Flow Rate (L/min) 1.5 Oxygen Delivery Method Room Air Weight: 146 lb 9.718 oz Body Mass Index (BMI) 24.3 Discharge Activity: May not drive while taking narcotic pain medications., May Shower, - - May not take a tub bath May shower in (days): 0 May resume sexual activity in: 6 weeks Weight Bearing Status: Weight bearing as tolerated Call your doctor if your incision/area has: Increased Pain/ Swelling, Increased Redness, Foul Smelling Discharge, Swelling at the incision site Call your doctor if you observe: Fever of 101 or Higher, Inability to urinate, Inability to have a bowel movement, Using more than one pad per hour, Shortness of breath, Dizziness, Fainting spells, Chest pain, Increased palpitations (irregular heartbeat), Calf discomfort, Uncontrolled pain Suture Line Care: Avoid Pinching/Bending Cleanse incision/area with: Soap & Water Home Medications: Medications to take at Discharge Cyanocobalamin (Vitamin B-12) [Vitamin B-12] 1,000 mcg PO DAILY 12/20/18 Lisinopril [Zestril] 5 mg PO DAILY 12/20/18 Multivitamin with Minerals [Multiple Vitamin] 1 each PO DAILY 12/20/18 Rosuvastatin Calcium [Crestor] 5 mg PO QHS 12/20/18 Docusate Sodium [Colace] 100 mg PO BID #60 cap 12/31/18 Ferrous Sulfate 325 mg PO DAILY #60 tab 12/31/18 Ibuprofen [Motrin] 600 mg PO Q6H PRN PRN #30 tab 12/31/18 Following Prescrptions Were Given to Patient: Docusate Sodium [Colace] 100 mg PO BID #60 cap Prescription Printed Ferrous Sulfate 325 mg PO DAILY #60 tab Prescription Printed Ibuprofen [Motrin] 600 mg PO Q6H PRN PRN #30 tab PRN Reason: Pain Prescription Printed Primary Care Physician: Care Physician,No Primary [Primary Care Provider] - Please Follow Up With: Rose Manriquez DO When: 1 week Patient Instructions: Recovering from Hysterectomy Medical Necessity - Tobacco Use Smoking Status: Never smoker Tobacco Use: Non-smoker Meaningful Use Info Meaningful Use Diagnoses (Choose all that apply): None applicable
== END 2018-12-31 13:30 | disposition home or self-care (01) | DRG 908 ==
LOC: MS2 12-28 10:11 → MS3 12-28 10:11 → SDC 12-28 10:11 → ICU 12-28 10:12 → MS3 12-30 09:36
PROVIDERS: Internal Medicine Critical Care Medicine; Admitting Provider Obstetrics & Gynecology; Referring Provider Obstetrics & Gynecology; Visit Provider Internal Medicine
PROC: 0UT9FZZ Resection of Uterus, Via Natural or Artificial Opening With Percutaneous Endoscopic Assistance (ICD-10-PCS; principal; 2018-12-27 07:05)
PROC: 0W3J4ZZ Control Bleeding in Pelvic Cavity, Percutaneous Endoscopic Approach (ICD-10-PCS; CPT 49320; principal; 2018-12-28 15:45)
DX: T81.19XA Other postprocedural shock, initial encounter (principal); D62 Acute posthemorrhagic anemia; E87.1 Hypo-osmolality and hyponatremia; J98.11 Atelectasis; J90 Pleural effusion, not elsewhere classified; R10.2 Pelvic and perineal pain; N80.2 Endometriosis of fallopian tube; N80.0 Endometriosis of uterus; N83.8 Other noninflammatory disorders of ovary, fallopian tube and broad ligament; D69.6 Thrombocytopenia, unspecified; E87.6 Hypokalemia; I10 Essential (primary) hypertension; E78.5 Hyperlipidemia, unspecified; Y83.8 Other surgical procedures as the cause of abnormal reaction of the patient, or of later complication, without mention of misadventure at the time of the procedure; N30.10 Interstitial cystitis (chronic) without hematuria
CPT/HCPCS: 36415; 71045; 71046; 74177; 80048; 80053; 81025; 82962; 83735; 84484; 85014; 85018; 85025; 85027; 85384; 85610; 85730; 86850; 86900; 86920; 88305; 88307; 93005; 99251; J7030; J7050; J7120; P9016; P9017; Q9967; A4216; C1751; G0463; J1940; J2405